=== PATIENT | female | born 1955 | race Caucasian/White ===

== ENCOUNTER → 2023-05-29 08:09 | Outpatient (BNVA) | payer MEDICARE, SELFPAY | PROVIDERS: PCP Family Medicine; Visit Provider Physician Assistant Surgical ==

== ENCOUNTER 2023-07-02 09:58 | Outpatient (AMB) | payer MEDICARE, SELFPAY ==
--- NOTE | 2023-07-02 10:00 | MHC.OFFVISWM ---
Intake VS Expanded 07/02/23 10:13 Height 5 ft 2 in Weight 225 lb BMI 41.1 BP 151/92 H Blood Pressure Location Rt brachial Blood Pressure Position Sitting Pulse 97 Pulse Source Pulse Oximeter Temp 96.9 F Temperature Source Tympanic Pulse Oximetry 94 Oxygen Delivery Method Room Air Body Fat 107.6 Body Fat Percentage 47.8 Free Fat Mass 117.2 Muscle Mass 111.4 Visceral Mass 17.0 Water Mass 82.8 BMR 1,651 Intake Visit Reasons: (ov) SWL BMI 40.9 Inspector Casing Required: No Allergies acetaminophen [From Vicodin] Allergy (Severe, Verified 07/02/23 10:06) Anaphylaxis hydrocodone [From Vicodin] Allergy (Severe, Verified 07/02/23 10:06) Anaphylaxis Medication List - Last Reconciled 07/02/23 by ABRIL Richards allopurinol 100 mg PO BID amlodipine 2.5 mg PO DAILY cyclosporine 0.05% (Restasis) drps ophthalmic (eye) BID diphenhydramine HCl (Benadryl Allergy) 25 mg PO BEDTIME PRN famotidine (Pepcid) 20 mg PO DAILY simvastatin 40 mg PO DAILY vitamin B complex (B Complex-Vitamin B12 tablet) 1 tab PO DAILY HPI HPI Comments History of Present Illness Details Pt is here to start the [facility] [place] [facility]. She heard about our program from her son who had surgery here. Her goal is to lose weight and achieve a healthy lifestyle as well as to improve, if not resolve, obesity related medical conditions, including htn, hld. She reports first being concerned about her weight lifelong, highest weight to date was 239. Current weight is 225 pounds with a BMI of 41.2. She has tried multiple methods of weight loss including weight watchers without permanent results. She lives with daughter and granddaughter. 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 She wakes at:?7 am, and goes to bed at?10 pm. Dinner is at 6 pm. Breakfast: scram eggs or yogurt w Kashi cereal AM snack: fruit Lunch: protein w salad PM snack: popcorn Dinner: chicken, quinoa, veg, potatoe, pasta After dinner: crackers, fairlife milk, fruit, pudding Other snacks: ice cream, cake Liquids: 64 oz water daily, rare diet coke, no juice Alcohol/marijuana/tobacco intake: no etoh, no cannabis, no tobacco Exercise: stationary bike at home 20 min 3 x per week, swimming at [facility], GERD score: 7 JAYLEEN score: 0 ESS score: 3 QOL score: 65 [facility] Medical History (Updated 07/02/23 @ 11:01 by ABRIL Richards) Hx of cataract Hx of retinal detachment Surgical History (Updated 07/02/23 @ 11:01 by ABRIL Richards) History of colon resection History of lateral meniscus repair of left knee History of repair of ACL Hx of hernia repair Hx of kidney donation Social History Alcohol intake: never Patient Tobacco Use Status: Former Tobacco user Years Smoked: quit 20 yrs ago Review of Systems Const All systems reviewed & are unremarkable except as noted in HPI and below Physical Exam Const General: cooperative, healthy appearing and no acute distress Orientation/consciousness: patient oriented x3 HEENT Head: Yes normal to inspection Ears: hearing grossly normal bilaterally General nose exam: Normal external nose present Face and sinus: Yes normal facial exam Eyes General: appearance normal, both eyes and all related structures Resp Effort & Inspection: normal respiratory effort Auscultation: clear to auscultation bilaterally Cardio Rate: regular rate Rhythm: regular rhythm Heart sounds: S1 normal heart sound present and S2 normal heart sound present GI Other: infraumbilical surgical dehiscence scar, right open nephrectomy scar, lat abdomen, Inspection: Yes normal to inspection, No distended and Yes obesity Palpation (GI): Soft to palpation, nontender and no guarding Auscultation: normal bowel sounds Skin General skin exam: no rashes or lesions noted Neuro General: patient oriented x3 Extrem General: No edema Psych Appearance: grossly normal Mental Status: mental status grossly normal Speech and movement: Normal speech and movement present Affect: normal affect Attitude: cooperative Assessment & Plan Assessment & Plan (1) Morbid obesity: Code(s): E66.01 - Morbid (severe) obesity due to excess calories Plan: This is a?67 yo female who will start our SWL program to prepare for bariatric surgery.? Blood work, h pylori , CXR, ECG, Abd US and UGI have been ordered. She is being scheduled for RD and BH initial consultations. She will start SWL classes and watch the first three videos before her next appointment. ? Adequate sleep of 7-8 hours per night discussed, awakening at 7 am and going to bed at 10 pm ? Purchase body composition analyzer scale (Isma lawler or Salma recommended) and check weight weekly. The best time to do this is first thing in the morning after going to the bathroom. 1. Nutritional counseling: Be sure to careful read the number of scoops per shake Start with 3 Premier Protein shakes ([employer], [employer], [facility]), First shake (1 scoop in 8 oz low fat unsweetened almond milk or water) at 8am-10am, Second shake (1/2 scoop in 8 oz unsweetened almond milk or water) at 12pm-2pm 1 protein bar (Fit crunch bars at [employer], [facility], or [employer]) at 3pm-5pm. Dinner at 6pm (8 forks of protein and 8 forks of salad/vegetables). Meal to include lean meat (beef, fish, pork, turkey, chicken), cooked vegetables or a salad with olive oil and/or fruits (berries, pears, apples, kiwi). Avoid salt, breads, potatoes, rice, pasta, desserts. Another shake with 1 scoop in 8 oz unsweetened almond milk at 8pm-10pm. Try to drink 64 oz of water daily and avoid soda and juices. ?2. Each shake would be drunk slowly, like coffee in a period of 2 hours. ?3. Cut each bar in 4 pieces and eat each piece in 30 min ?to make each bar last 2 hours. ?4. I emphasized the importance of measuring accurately the food portion and measure it carefully when serving the food on the plate ?5. The meal portions include 8 full-size forks of meat and 8 full-size forks of salad. You always eat the meat portion but you can replace up to half of the forks of salad/vegetables with rice, potatoes or pasta, or a fruit ?if you like. The less you do it the better weight loss will be. ?6. One full-size fork is what can be scooped on the fork without falling aside and not what can be bit with the fork. Use regular forks like those you find in a typical restaurant. ?7.? Please send me weight measurements as soon as possible and then once a week. Always include your diet and exercise plan. Alternatively come weekly at the office for weight checks and send me the measurements. ?8. Exercise counseling: Begin by watching a stretching for beginners video. Start slowly and begin to stretch your muscles. You should do this before and after each exercise session to prevent injury. Please return to [facility] gym near your home. Ask the entry level manager or one of the trainers how to use the machines if you are unfamiliar with them. Start elliptical with a resistance of 0. Increase resistance by 1 every 3 min to your most comfortable resistance with a max resistance of 6. Reduce the resistance by 1 every 3 minutes back down to 0 and repeat cycles for 300 calories. Alternatively, start treadmill with a speed of 2.2-2.5 and incline of 0, increasing incline by 1 every 3 minutes to the highest comfortable level (max 6 for now) then decrease in the same fashion. Repeat process to a goal of 300 calories. Goal of 2000 calories burned or more weekly. You may also consider use of the stationary bike. The easiest would be to chose the fat-burn or interval training program on the machine and do this until you reach the 300 calorie goal. Alternatively, you can manually adjust the resistance in a similar fashion as mentioned above, (resistance of 0-6 with a goal speed of 12 mph). Tracking calories is essential. 9. Alternatively start walking outside daily, tracking calories with a goal of 300 calories per day, daily. You can download the tevin [employer] which can track your time, distance and calories while walking outside. You press start in the tevin when you start and then stop when you are finished. 10.? It is important to text me weekly with your weight and if you are having any problems with the plans. 11. Please get labs, EKG and chest X-Ray within 1 week. 12. Discussed and answered all questions regarding?obtained consent to participate in the [place] [facility]?Registry. 13. Please follow the diet plan exactly, without any change. If you do not like something about the plan or you feel hungry, you need to communicate with me so I can help you revise the plan. You should not change the plan yourself. Text me at [phone] 14. Goal is to lose at least 12 pounds in the first month 15. Goal is to lose 10% of your weight before surgery, which is about 22 lbs. Ultimate weight goal: 203 lbs before surgery Patient is morbidly obese and is not considered stable at this time.?I spent a total of 70 minutes reviewing/updating records, examining the patient and counseling the patient on weight management as detailed above. Orders: Orders Vitamin B12 and Folate Today E66.01 - Morbid (severe) obesity due to excess calories, E78.00 - Pure hypercholesterolemia, unspecified, I10 - Essential (primary) hypertension Comprehensive Met. Panel Today E66.01 - Morbid (severe) obesity due to excess calories, E78.00 - Pure hypercholesterolemia, unspecified, I10 - Essential (primary) hypertension C Reactive Protein Today E66.01 - Morbid (severe) obesity due to excess calories, E78.00 - Pure hypercholesterolemia, unspecified, I10 - Essential (primary) hypertension Ferritin Today E66.01 - Morbid (severe) obesity due to excess calories, E78.00 - Pure hypercholesterolemia, unspecified, I10 - Essential (primary) hypertension Hemoglobin A1c Today E66.01 - Morbid (severe) obesity due to excess calories, E78.00 - Pure hypercholesterolemia, unspecified, I10 - Essential (primary) hypertension Insulin Today E66.01 - Morbid (severe) obesity due to excess calories, E78.00 - Pure hypercholesterolemia, unspecified, I10 - Essential (primary) hypertension IRON PROFILE Today E66.01 - Morbid (severe) obesity due to excess calories, E78.00 - Pure hypercholesterolemia, unspecified, I10 - Essential (primary) hypertension Lipid Panel Today E66.01 - Morbid (severe) obesity due to excess calories, E78.00 - Pure hypercholesterolemia, unspecified, I10 - Essential (primary) hypertension PTHI Today E66.01 - Morbid (severe) obesity due to excess calories, E78.00 - Pure hypercholesterolemia, unspecified, I10 - Essential (primary) hypertension TSH reflex Free T4 Today E66.01 - Morbid (severe) obesity due to excess calories, E78.00 - Pure hypercholesterolemia, unspecified, I10 - Essential (primary) hypertension Vitamin A Today E66.01 - Morbid (severe) obesity due to excess calories, E78.00 - Pure hypercholesterolemia, unspecified, I10 - Essential (primary) hypertension Vitamin B1 Today E66.01 - Morbid (severe) obesity due to excess calories, E78.00 - Pure hypercholesterolemia, unspecified, I10 - Essential (primary) hypertension Vitamin D 25-OH Total Today E66.01 - Morbid (severe) obesity due to excess calories, E78.00 - Pure hypercholesterolemia, unspecified, I10 - Essential (primary) hypertension Zinc Today E66.01 - Morbid (severe) obesity due to excess calories, E78.00 - Pure hypercholesterolemia, unspecified, I10 - Essential (primary) hypertension ECG 12 lead EKG Today E66.01 - Morbid (severe) obesity due to excess calories, E78.00 - Pure hypercholesterolemia, unspecified, I10 - Essential (primary) hypertension FL upper GI w air Today E66.01 - Morbid (severe) obesity due to excess calories, E78.00 - Pure hypercholesterolemia, unspecified, I10 - Essential (primary) hypertension Complete Blood Count Auto Diff Today E66.01 - Morbid (severe) obesity due to excess calories, E78.00 - Pure hypercholesterolemia, unspecified, I10 - Essential (primary) hypertension H Pylori Breath Test Today E66.01 - Morbid (severe) obesity due to excess calories, E78.00 - Pure hypercholesterolemia, unspecified, I10 - Essential (primary) hypertension US abdomen comp w elastography Today E66.01 - Morbid (severe) obesity due to excess calories, E78.00 - Pure hypercholesterolemia, unspecified, I10 - Essential (primary) hypertension XR chest 2V Today E66.01 - Morbid (severe) obesity due to excess calories, E78.00 - Pure hypercholesterolemia, unspecified, I10 - Essential (primary) hypertension Referrals Behavioral Health Referral E66.01 - Morbid (severe) obesity due to excess calories, E78.00 - Pure hypercholesterolemia, unspecified, I10 - Essential (primary) hypertension Nutrition/Dietitian Referral E66.01 - Morbid (severe) obesity due to excess calories, E78.00 - Pure hypercholesterolemia, unspecified, I10 - Essential (primary) hypertension Coding Level of Care Code New Pt Level 5 (73512) Diagnoses Morbid obesity E66.01 Time Spent (min) 70
[2023-07-02 10:13] VITALS: BP 151/92; PULSE 97; TEMP 36.1; O2SAT 94; BMI 41.1
== END 2023-07-02 11:12 | disposition home or self-care (01) ==
PROVIDERS: PCP Family Medicine; Visit Provider Physician Assistant Surgical
DX: E66.01 Morbid (severe) obesity due to excess calories (principal); Z68.41 Body mass index [BMI] 40.0-44.9, adult
CPT/HCPCS: 99205

== ENCOUNTER → 2023-07-02 09:58 | Outpatient (BNVA) | payer MEDICARE, SELFPAY | PROVIDERS: PCP Family Medicine; Visit Provider Physician Assistant Surgical ==

== ENCOUNTER 2023-07-04 08:02 | Outpatient (REF) | payer MEDICARE, SELFPAY ==
--- NOTE | ~2023-07-04 | XR_ITS ---
EXAMINATION: XR CHEST 2 VIEWS CLINICAL INFORMATION: Morbid obesity. COMPARISON: None. TECHNIQUE: Frontal and lateral views of the chest were obtained. FINDINGS: The heart, great vessels, pulmonary vasculature and mediastinum are normal. The lungs show no focal infiltrate, effusion or pneumothorax. There is no acute osseous abnormality. There is multi-level thoracic spondylosis. XR/XR chest 2V IMPRESSION: No active cardiopulmonary disease.
--- NOTE | 2023-07-04 08:08 | ECG_ITS ---
Test Reason : morbid obesity Blood Pressure : / mmHG Vent. Rate : 098 BPM Atrial Rate : 098 BPM P-R Int : 166 ms QRS Dur : 082 ms QT Int : 350 ms P-R-T Axes : 037 -34 043 degrees QTc Int : 446 ms Normal sinus rhythm Left axis deviation Possible Inferior infarct , age undetermined Cannot rule out Anterior infarct , age undetermined Abnormal ECG No previous ECGs available Referred By: Karlos Pedroza Electronically Signed By:CASSI ALLISON
[2023-07-04 08:40] LABS: MANUAL DIFF FLAG NO
[2023-07-04 09:39] LABS: Basophils Absolute Auto 0.1 X10*3/uL (0.0-0.2); Eosinophils Absolute Auto 0.1 X10*3/uL (0.0-0.4); Eosinophils Percent Auto 1.1 % (0-4); Hematocrit 45.5 % (37.0-47.0); Imm Gran Abs Auto 0.02 X10*3/uL (0.00-0.03); Imm Gran Pct Auto 0.3 % (0.0-0.4); Lymphocytes Absolute Auto 1.7 X10*3/uL (1.2-4.9); Lymphocytes Percent Auto 23.6 % (20-40); Mean Corpuscular HGB Conc 35.2 g/dl (31.0-35.0); Mean Corpuscular Hemoglobin 35.9 pg (27.0-33.0); Mean Platelet Volume 10.5 fL (9.4-12.3); Monocytes Absolute Auto 0.7 X10*3/uL (0.1-1.2); Neutrophils Absolute Auto 4.7 x10*3/uL (2.0-8.3); Platelet Count 284 X10*3/uL (160-400); Red Blood Count 4.46 X10*6/uL (4.20-5.50); Red Cell Distribution Width 13.4 % (11.0-16.0); White Blood Count 7.3 X10*3/uL (4.8-10.8)
[2023-07-04 09:46] LABS: Estimated Average Glucose 94 mg/dL; Hemoglobin A1c % 4.9 % (<6.0)
[2023-07-04 10:36] LABS: Alanine Aminotransferase 32 U/L (0-31); Albumin Level 4.4 g/dL (3.5-5.0); Alkaline Phosphatase 79 U/L (39-117); Anion Gap 14 (12-20); Aspartate Amino Transferase 30 U/L (5-31); Bilirubin Total 0.6 mg/dL (0.0-1.0); Blood Urea Nitrogen 26 mg/dL (9-16); Calcium 10.1 mg/dL (8.4-10.2); Carbon Dioxide 25 mmol/L (22-29); Chloride 105 mmol/L (96-108); Cholesterol 217 mg/dL (<200); Estimated Glomerular Filt Rate 48; Ferritin 234 ng/mL (10-250); Glucose Random 101 mg/dL (60-115); HDL Cholesterol 47 mg/dL (>40); Insulin 16 uU/mL (2-29); Iron 131 mcg/dL (30-160); LDL Cholesterol Calculated 132 mg/dL (<100); Percent Iron Saturation 44 % (15-50); Potassium 4.1 mmol/L (3.3-5.1); Sodium 140 mmol/L (135-145); TSH reflex Free T4 2.08 uIU/mL (0.32-4.0); Total Iron Binding Capacity 296 mcg/dL (228-428); Total Protein 7.6 g/dL (6.5-8.0); Triglycerides 193 mg/dL (<150); Unsaturated Iron Binding 165 ug/dL; Vitamin D 25-OH Total 48.5 ng/mL (>30)
[2023-07-04 10:52] LABS: Folate 15.6 ng/mL (> or = 4.0); Vitamin B12 1756 pg/mL (200-900)
[2023-07-06 12:39] LABS: Calcium (PTHI) 9.9 mg/dL (8.6-10.4); PTHI 35 pg/mL (16-77)
[2023-07-08 12:34] LABS: Zinc 75 mcg/dL (60-130)
[2023-07-09 16:23] LABS: Vitamin B1 17 nmol/L (8-30)
[2023-07-10 02:19] LABS: Vitamin A 91 mcg/dL (38-98)
== END 2023-07-04 08:03 | disposition home or self-care (01) ==
LOC: HO.LAB 08:02
PROVIDERS: Visit Provider Physician Assistant Surgical
DX: E66.01 Morbid (severe) obesity due to excess calories (principal); E78.00 Pure hypercholesterolemia, unspecified; I10 Essential (primary) hypertension
CPT/HCPCS: 36415; 71046; 80053; 80061; 82306; 82607; 82728; 82746; 83036; 83525; 83540; 83970; 84425; 84443; 84590; 84630; 85025; 86140; 93005

== ENCOUNTER 2023-07-18 10:12 | Outpatient (REF) | payer MEDICARE, SELFPAY ==
--- NOTE | ~2023-07-18 | US_ITS ---
EXAMINATION: US COMPLETE ABDOMEN WITH LIVER ELASTOGRAPHY CLINICAL INFORMATION: Obesity COMPARISON: None available. TECHNIQUE: Real-time imaging of the abdominal viscera. Noninvasive ultrasound liver fibrosis assessment is performed using Conrad ElastPQ point quantification shear wave elastography (2D-SWE) with a C5-2 MHz transducer. Multiple elastography samples are obtained. FINDINGS: PANCREAS: The head of the pancreas is normal. The remainder of the pancreas is obscured from visualization by the overlying bowel gas. ABDOMINAL AORTA: Not well visualized due to bowel gas INFERIOR VENA CAVA: Visualized portions are normal. LIVER: Liver echotexture is slightly increased. The liver is normal in size 1.6 x 1.1 x 1.2 cm cyst in the left lobe of the liver. No other focal lesion. No biliary duct dilatation. The right lobe measures 14 cm in length. The left lobe measures 9 cm in length. Portal flow is normal/hepatopedal Shear wave liver elastography median stiffness is 1.2 m/s (reference: normal median stiffness is 1.3 m/s or less). IQR/median stiffness to assess sampling precision is 0.07 (reference: good quality data set is IQR/median stiffness of 0.15 or less). GALLBLADDER: Normal. The gallbladder is physiologically distended without evidence of stones, sludge, polyps, wall thickening or pericholecystic fluid. COMMON BILE DUCT: Normal in caliber measuring 0.3 cm in diameter. RIGHT KIDNEY: Removed LEFT KIDNEY: Normal. No hydronephrosis. No renal calculi or focal parenchymal lesions. The kidney measures 11.7 cm in maximum dimension. SPLEEN: Normal. The spleen measures 10.6 cm in maximum dimension. FREE FLUID: None. US/US abdomen comp w elastography IMPRESSION: 1. Impression: Slightly echogenic liver. Small liver cyst. Limited visualization of the pancreas and aorta. 2. Liver elastography: Adequate sampling. Normal liver stiffness. REFERENCE: Society of Radiologists in Ultrasound Liver Stiffness Thresholds (2020): LIVER STIFFNESS THRESHOLDS: *Liver Stiffness equal or less than 1.3 m/s: High probability of being normal. *Liver Stiffness less than 1.7 m/s: In the absence of other known clinical signs, rules out compensated advanced chronic liver disease. *Liver Stiffness 1.7-2.1 m/s: Suggestive of compensated advanced chronic liver disease but need further test for confirmation. *Liver Stiffness over 2.1 m/s: Rules in compensated advanced chronic liver disease. *Liver Stiffness over 2.4 m/s: Suggestive of clinically significant portal hypertension. QUALITY OF DATA SET: *IQR/Median value equal or less than 0.15 implies a quality data set. *IQR/Median value over 0.15 implies a poor quality data set. SIGNIFICANT CHANGE FROM PRIOR EXAM: Significant change if liver stiffness measurement is 10% or greater from prior exam. OTHER CONSIDERATIONS: The stage of liver fibrosis may be overestimated in the setting of acute hepatitis, liver inflammation, elevated liver function tests, hepatic vascular congestion, obstructive cholestasis, non-fasting state, and infiltrative diseases such as amyloidosis and lymphoma. In some patients with NAFLD, the liver stiffness thresholds for compensated advanced chronic liver disease may be lower. In causes other than viral hepatitis and NAFLD, liver stiffness thresholds are not well established.
== END 2023-07-18 10:13 | disposition home or self-care (01) ==
LOC: HO.US 10:12
PROVIDERS: PCP Family Medicine; Visit Provider Physician Assistant Surgical
DX: E66.01 Morbid (severe) obesity due to excess calories (principal); E78.00 Pure hypercholesterolemia, unspecified; I10 Essential (primary) hypertension
CPT/HCPCS: 76705; 76981

== ENCOUNTER 2023-07-22 08:44 | Outpatient (REF) | payer MEDICARE, SELFPAY ==
[2023-07-24 14:36] LABS: H Pylori Breath Test Negative (Negative)
== END 2023-07-22 08:45 | disposition home or self-care (01) ==
LOC: HO.LNP 08:44
PROVIDERS: PCP Family Medicine; Visit Provider Physician Assistant Surgical
DX: Z11.2 Encounter for screening for other bacterial diseases (principal); E66.01 Morbid (severe) obesity due to excess calories; E78.00 Pure hypercholesterolemia, unspecified; I10 Essential (primary) hypertension
CPT/HCPCS: 83013; 97802; 99211

== ENCOUNTER 2023-07-30 08:24 | Outpatient (AMB) | payer MEDICARE, SELFPAY ==
--- NOTE | 2023-07-30 08:25 | A.OFFVIS_ITS ---
Intake VS Expanded 07/30/23 08:34 BP 147/87 H Blood Pressure Location Rt brachial Blood Pressure Position Sitting Pulse 100 Pulse Source Pulse Oximeter Temp 96.3 F L Temperature Source Tympanic Pulse Oximetry 97 Oxygen Delivery Method Room Air Height 5 ft 2 in Weight 215 lb 9.6 oz BMI 39.4 Body Fat % 46.5 Body Fat Mass 100.0 Fat Free Mass 115.4 Visceral Fat Rating 16.0 Body Water % 37.8 Body Water Mass 81.4 Muscle Mass/Score 109.6 Basal Metabolic Rate/Score 1,614 Intake Visit Reasons: (OV) F/U SWL Cloth Desizing Range Tender Required: No Allergies acetaminophen [From Vicodin] Allergy (Severe, Verified 07/30/23 08:30) Anaphylaxis hydrocodone [From Vicodin] Allergy (Severe, Verified 07/30/23 08:30) Anaphylaxis Medication List - Last Reconciled 07/30/23 by ABRIL Richards allopurinol 100 mg PO BID amlodipine 2.5 mg PO DAILY cyclosporine 0.05% (Restasis) drps ophthalmic (eye) BID diphenhydramine HCl (Benadryl Allergy) 25 mg PO BEDTIME PRN famotidine (Pepcid) 20 mg PO DAILY simvastatin 40 mg PO DAILY HPI HPI Comments History of Present Illness Details The patient is a pleasant 67 year old female who returns to the clinic for pre-operative surgical weight loss management. They were last seen in the office on 07/02/23, recorded weight at that time was 225 pounds, with a BMI of 41.1. Today's weight is 215.6 pounds and BMI is 39.4. There has been a weight loss of 9.4 pounds since initiating the surgical weight loss program on 07/02/23 with a total body weight loss of 4.1 %. Pre op work up completed as follows: SWL classes:? 06/03 BH appts: 08/06/23 ? ? RD appts: cleared-07/22/23 Labs: 07/04/23 H. pylori: 07/22/23-neg CXR: 07/04/23-nad EK07/04/23-poss inf infarct, cannot r/o anterior infarct - 07/07/23-nuc stress test ordered, scheduled 08/07/23 ABD U/S: 07/18/23-fatty liver, small cyst left lobe UGI: 09/11/23 The patient reports she is feeling well. . Current meal plan includes: 2 Premier Protein shakes ([employer], [employer], [facility]), First shake (1.5 scoop in 8 oz low fat unsweetened almond milk or water) at 8am- 10am, Second shake (1 scoop in 8 oz unsweetened almond milk or water) at 12pm-2pm 1 protein bar (Fit crunch bars at [employer] , [facility], or [employer]) at 3pm-5pm. Dinner at 6pm (8 forks of protein and 8 forks of salad/vegetables). Drinking 60 oz of water Current exercise plan includes: stationary bike, 300 calories 5 x per week, water aerobics, 2 x/w, walking outside [facility] Medical History Hx of cataract Hx of retinal detachment Surgical History Hx of hernia repair History of repair of ACL History of lateral meniscus repair of left knee History of colon resection Hx of kidney donation Social History Alcohol intake: never Patient Tobacco Use Status: Former Tobacco user Years Smoked: quit 20 yrs ago Physical Exam Const General: healthy appearing and no acute distress Resp Effort & Inspection: normal respiratory effort Auscultation: clear to auscultation bilaterally Cardio Rate: regular rate Rhythm: regular rhythm GI Auscultation: normal bowel sounds Extrem General: Yes normal to inspection Assessment & Plan Assessment & Plan (1) Obesity (BMI 30-39.9): Code(s): E66.9 - Obesity, unspecified Plan: Making good progress 2 Premier Protein shakes ([employer], [employer], [facility]), First shake (1 scoop in 8 oz low fat unsweetened almond milk or water) at 8am- 10am, Second shake (1 scoop in 8 oz unsweetened almond milk or water) at 12pm-2pm 1 protein bar (Fit crunch bars at [employer], [facility], or [employer]) at 3pm-5pm. Dinner at 6pm (8 forks of protein and 8 forks of salad/vegetables). Increase exercise slightly reminded of upcoming appts rtc 3 weeks Coding Level of Care Code Est Pt Level 3 (76743) Diagnoses Obesity (BMI 30-39.9) E66.9
[2023-07-30 08:34] VITALS: BP 147/87; PULSE 100; TEMP 35.7; O2SAT 97; BMI 39.4
== END 2023-07-30 08:58 | disposition home or self-care (01) ==
PROVIDERS: PCP Family Medicine; Visit Provider Physician Assistant Surgical
DX: E66.9 Obesity, unspecified (principal); Z68.39 Body mass index [BMI] 39.0-39.9, adult
CPT/HCPCS: 99213

== ENCOUNTER → 2023-07-30 08:24 | Outpatient (BNVA) | payer MEDICARE, SELFPAY | PROVIDERS: PCP Family Medicine; Visit Provider Physician Assistant Surgical | DX: E66.9 Obesity, unspecified (principal); Z68.39 Body mass index [BMI] 39.0-39.9, adult | CPT/HCPCS: 99212 ==

== ENCOUNTER 2023-08-06 12:32 | Outpatient (AMB) | payer MEDICARE, SELFPAY ==
--- NOTE | 2023-08-06 12:42 | MHC.WMTHER ---
Intake Intake Visit Reasons: (OV) BH Intake Allergies acetaminophen [From Vicodin] Allergy (Severe, Verified 07/30/23 08:30) Anaphylaxis hydrocodone [From Vicodin] Allergy (Severe, Verified 07/30/23 08:30) Anaphylaxis PFSH Medical History Hx of cataract Hx of retinal detachment Surgical History Hx of hernia repair History of repair of ACL History of lateral meniscus repair of left knee History of colon resection Hx of kidney donation Social History Alcohol intake: never Patient Tobacco Use Status: Former Tobacco user Years Smoked: quit 20 yrs ago Behavioral Health Assessment Weight Management Therapy Therapy Notes Details Pt is looking to have weight loss surgery to help improve her health and quality of life. She reported that she wants to keep up with her grandchildren and also honor her brother who . Pt denied any mental health history at all. Presenting Concerns Referral Source provider Reason for referral weight loss surgery evaluation Precipitating Event obesity Living Situation Current Living Situation Own At risk of losing current housing? No Satisfied with current living situation? Yes Comments Pt is living with her daughter and granddaughter. Food/Weight/Diet Expectations of change weight loss History/Relationship with food Pt stated that she likes to eat, struggles with stopping and recognizing when she is full. She would eat her meals and graze as well. History/Relationship with weight Last 20 years or so History/Relationship with dieting WW many times and lost 50lbs a few times. Binge Eating Do you frequently eat large amounts of food in short periods of time, not feeling physically hungry? No Do you feel out of control when you eat a large amount of food in a short period of time? No Do you eat large amounts of food rapidly and typically alone? Yes Night Eating Do you wake up at least once during the night to eat? No If you wake up in the night, do you find that it is necessary to eat something in order to fall back asleep? No Do you have little or no appetite in the morning and feel very hungry in the evening, often overeating between dinner and when you go to bed? No Social History Family history and relationship Pt is , has three adult children and grandchildren. She reported that she at age 17 to her who 13 years ago from lung cancer. Her brother last December and he had diabetes since age 8. 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 Cultural/Ethnic information Legal Involvement and History Current or historical involvement with the legal system? none reported Education Preferred learning style Auditory, Verbal, Written, Learn by doing and Visual Currently enrolled in educational program? No Interested in further educational program? 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 None Service Service? No Mental Health and Addiction Treatment Current/Past substance abuse? Yes Comments Patient stated that she used to drink too much everyday whether iit was wine or something else. She stopped drinking completely 25 years ago when her son developed an addiction problem. Current/Past addictive behavior concerns? No Medical and Physical Health Summary Physical exam in the last year? Yes Pain Screening Current pain? Yes Pain in the last few months? No Medications Is the patient compliant with medications? Yes Does the patient have Stewart Guardian in place? Not applicable Does the patient use complimentary health approaches? No Trauma/Abuse History History of trauma? Yes Other Past (multiple losses ) Questionnaires PHQ-9 Over the last 2 weeks, how often have you been bothered by any of the following problems? 1. Little interest or pleasure in doing things: not at all 2. Feeling down, depressed, or hopeless: not at all 3. Trouble falling or staying asleep, or sleeping too much: not at all 4. Feeling tired or having little energy: not at all 5. Poor appetite or overeating: several days 6. Feeling bad about yourself - or that you are a failure or have let yourself or your family down: not at all 7. Trouble concentrating on things, such as reading the newspaper or watching television: not at all 8. Moving or speaking so slowly that other people could have noticed. Or the opposite - being so fidgety or restless that you have been moving around a lot more than usual: not at all 9. Thoughts that you would be better off or of hurting yourself in some way: not at all Total score: 1 Source: Developed by Drs. Mark Multani, Evelyn Corona, Rodrigo Hernandez and colleagues, with an educational ino from [employer]. Binge Eating Scale Group 1 A. I don't feel self-conscious about my wt. or body size when I'm with others. B. I feel concerned about how I look to others, but it normally does not make me fell disappointed with myself C. I do get self-conscious about my appearance and wt. which makes me feel disappointed in myself. D. I feel very self-conscious about my wt. and frequently I feel intense shame and disgust for myself. I try to avoid social contacts because of my self-consciousness. Response Group 1: B Group 2 A. I don't have any difficulty eating slowly in the proper manner. B. Although I seem to gobble down foods, I don't end up feeling stuffed because of eating to much. C. At times, I tend to eat quickly and then, I feel uncomfortably full afterwards. D. I have the habit of bolting down my food, without really chewing it. When this happens I usually feel uncomfortably stuffed because I've eaten to much. Response Group 2: A Group 3 A. I feel capable to control my eating urges when I want to. B. I feel like I have failed to control my eating more than the average person. C. I feel utterly helpless when it comes to feeling in control of my eating urges. D. Because I feel so helpless about controlling my eating I have become very desperate about trying to get control. Response Group 3: B Group 4 A. I don't have the habit of eating when I'm bored. B. I sometimes eat when I'm bored, but often I'm able to get busy and get my mind off food. C. I have a regular habit of eating when I'm bored, but occasionally, I can use some other activity to get my mind off eating. D. I have a strong habit of eating when I'm bored. Nothing seems to help me breath the habit. Response Group 4: B Group 5 A. I'm usually physically hungry when I eat something. B. Occasionally, I eat something on impulse even though I really am not hungry. C. I have the regular habit of eating foods, that I might not really enjoy, to satisfy a hungry feeling even though physically, I don't need the food. D. Although I'm not physically hungry, I get a hungry feeling in my mouth that only seems to be satisfied when I eat a food, like sandwich, that fills my mouth. Sometimes, when I eat the food to satisfy my mouth hunger, I then spit the food out so I won't gain weight. Response Group 5: B Group 6 A. I don't feel any guilt or self-hate after I overeat. B. After I overeat, occasionally I feel guilt or self-hate. C. Almost all the time I experience strong guilt or self-hate after I overeat. Response Group 6: B Group 7 A. I don't lose total control of my eating when dieting even after periods when I overeat. B. Sometimes when I eat a forbidden food on a diet, I feel like I blew it and eat even more. C. Frequently, I have the habit of saying to myself, I've blown it now, why not go all the way, when I overeat on a diet. When that happens I eat more. D. I have a regular habit of starting a strict diets for myself but I break the diets by going on an eating binge. My life seems to be either a feast or famine. Response Group 7: B Group 8 A. I rarely eat so much food that I feel uncomfortably stuffed afterwards. B. Usually about once a month, I each such a quantity of food, I end up feeling very stuffed. C. I have regular periods during the month when I eat large amounts of food, either at mealtime or at snacks. D. I eat so much food that I regularly feel quite uncomfortable after eating and sometimes a bit nauseous. Response Group 8: A Group 9 A. My level of calorie intake does not go up very high or go down very low on a regular basis. B. Sometimes after I overeat, I will try to reduce my caloric intake to almost nothing to compensate for the excess calories I've eaten. C. I have a regular habit of overeating during the night. It seems that my routine is not to be hungry in the morning but overeat in the evening. D. In my adult years, I have had week-long periods where I practically starve myself. This follows periods when I overeat. It seems I live a life of either feast or famine. Response Group 9: B Group 10 A. I usually am able to stop eating when I want to. I know when enough is enough. B. Every so often, I experience a compulsion to eat which I can't seem to control. C. Frequently, I experience strong urges to eat which I seem unable to control, but at other times I can control my eating urges. D. I feel incapable of controlling urges to eat. I have a fear of not being able to stop eating voluntarily. Response Group 10: A Group 11 A. I don't have any problem stopping eating when I feel full. B. I usually can stop eating when I feel full but occasionally overeat leaving me feeling uncomfortably stuffed. C. I have a problem stopping eating once I start and usually I feel uncomfortably stuffed after I eat a meal. D. Because I have a problem not being able to stop eating when I want, I sometimes have to induce vomiting to relieve my stuffed feeling. Response Group 11: B Group 12 A. I seem to eat just as much when I'm with others, Family social gatherings as when I'm by myself. B. Sometimes, when I'm with other persons, I don't eat as much as I want to eat because I'm self-conscious about my eating. C. Frequently, I eat only a small amount of food when others are present, because I'm very embarrassed about my eating. D. I feel so ashamed about overeating that I pick times to overeat when I know no one will see me. I feel like a closet eater. Response Group 12: B Group 13 A. I eat three meals a day with only an occasional between meal snack. B. I eat 3 meals a day, but I also normally snack between meals. C. When I am snacking heavily, I get in the habit of skipping regular meals. D. There are regular periods when I seem to be continually eating, with no planned meals. Response Group 13: B Group 14 A. I don't think much about trying to control unwanted eating urges. B. At least some of the time, I feel my thoughts are pre-occupied with trying to control my eating urges. C. I feel that frequently I spend much time thinking about how much I ate or about trying not to eat anymore. D. It seems to me that most of my waking hours are pre-occupied by thoughts about eating or not eating. I feel like I'm constantly struggling not to eat. Response Group 14: B Group 15 A. I don't think about food a great deal. B. I have strong craving for food but they last only for brief periods of time. C. I have days when I can't seem to think about anything else but food. D. Most of my days seem to be pre-occupied with thoughts about food. I feel like I live to eat. Response Group 15: B Group 16 A. I usually know whether or not I'm physically hungry. I take the right portion of food to satisfy me. B. Occasionally, I feel uncertain about knowing whether or not I'm physically hungry. A these times it's hard to know how much food I should take to satisfy me. C. Even though I might know how many calories I should eat, I don't have any idea what is a normal amount of food for me. Response Group 16: A Binge Eating Score: 12 Score less than 17 Minimal Risk Score between 18-26 Moderate Risk Score between 27-46 High Risk Assessment & Plan Assessment & Plan (1) Adjustment disorder, unspecified: Code(s): F43.20 - Adjustment disorder, unspecified (2) Morbid obesity: Code(s): E66.01 - Morbid (severe) obesity due to excess calories Plan Patient has no mental health treatment history or serious difficulties with emotional health. 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 Coding Level of Care Code Marques Garcia ([id number]) Diagnoses Adjustment disorder, unspecified F43.20 Morbid obesity E66.01 Time Spent (min) 55
== END 2023-08-06 14:03 | disposition home or self-care (01) ==
PROVIDERS: PCP Family Medicine; Visit Provider Counselor Mental Health
DX: F43.20 Adjustment disorder, unspecified (principal); E66.09 Other obesity due to excess calories; Z68.39 Body mass index [BMI] 39.0-39.9, adult
CPT/HCPCS: 90791

== ENCOUNTER → 2023-08-06 12:32 | Outpatient (BNVA) | payer MEDICARE, SELFPAY | PROVIDERS: PCP Family Medicine; Visit Provider Counselor Mental Health ==

== ENCOUNTER → 2023-08-07 08:01 | Outpatient (REF) | payer MEDICARE, SELFPAY ==
--- NOTE | ~2023-08-07 | NM_ITS ---
Lexiscan Myocardial perfusion study Indication: Abnormal EKG, preoperative evaluation Technique: The patient was brought in for a Lexiscan perfusion study on 08/07/2023 and was injected 0.4 mg of Lexiscan intravenously. Within a minute of this injection 35 mCi of sestamibi was given intravenously. Images were obtained using the SPECT gamma camera interlaced with the gating device. Images were obtained in supine position. Resting perfusion study was performed on 08/08/2023. Patient was administered 35 mCi of sestamibi intravenously at rest. Images were then obtained in supine position. Images were processed with the software and compared side to side in short axis, horizontal long axis and vertical long axis views. Total DLP 178mGy-cm. Findings: Raw acquisition reviewed. The stress perfusion study showed mildly diminished tracer uptake in the basal to mid part of inferior wall. With CT at admission correction, there is significant improvement suggestive of diaphragmatic attenuation artifact. The gated study shows diminished LV systolic function with calculated LVEF of 45%, but visually appears normal. LV cavity is normal in size. The gated study shows normal wall thickening and contraction of segments. Resting study shows diminished tracer uptake in the inferior wall. There is improvement with CT attenuation correction suggestive of diaphragmatic attenuation artifact. Gating at rest reveals normal wall motion with ejection fraction at 32%; however, visually LVEF appears normal. The findings are consistent with fixed inferior defect from diaphragmatic attenuation artifact. No clear reversible defects. NM/NM cardiolite stress test Impression: 1. Myocardial perfusion imaging study shows likely normal myocardial perfusion. 2. Gated LVEF is 44% during stress and 32% during; however, visually appears to be normal. Correlate with echocardiogram. 3. Transient ischemic dilatation not present. EKG component of the test reported separately.
--- NOTE | 2023-08-07 08:03 | CA_ITS ---
Acquisition Time: 2023-08-07 08:04:22 Total Exercise Time: 00:02:00 Test Indications: Abnormal ECG Medications: ALLOPURINOL AMLODIPINE FAMOTIDINE SIMVASTATIN Protocol: LEXISCAN Max HR: 112 BPM 73% of Pred: 152 BPM Max BP: 106/076 mmHG Max Work Load: 1.0 METS Pharmacolgical stress test with Lexiscan injection while sitting and kicking in chair,without angnal symptoms, without arrhythmias, with normotensive response to injection, with nondiagnositic EKGs. Nuclear images pending. Test reviewed with Dr. Banegas. Referred By: Karlos Pedroza Overread By: Lee Ann Campuzano
== END ==
LOC: HO.CARD 08:01
PROVIDERS: PCP Family Medicine; Visit Provider Physician Assistant Surgical
DX: E66.01 Morbid (severe) obesity due to excess calories (principal); R94.31 Abnormal electrocardiogram [ECG] [EKG]
CPT/HCPCS: 78452; 93017; A9500; J0280; J2785

== ENCOUNTER → 2023-08-07 08:03 | Outpatient (BNV) | payer MEDICARE, SELFPAY | PROVIDERS: PCP Family Medicine; Visit Provider Nurse Practitioner | DX: R94.31 Abnormal electrocardiogram [ECG] [EKG] (principal) | CPT/HCPCS: 78452; 93016; 93018 ==

== ENCOUNTER 2023-08-28 09:44 | Outpatient (AMB) | payer MEDICARE, SELFPAY ==
--- NOTE | 2023-08-28 09:08 | A.OFFVIS_ITS ---
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 Allergies acetaminophen [From Vicodin] Allergy (Severe, Verified 07/30/23 08:30) Anaphylaxis hydrocodone [From Vicodin] Allergy (Severe, Verified 07/30/23 08:30) Anaphylaxis Medication List - Last Reconciled 08/28/23 by ABRIL Richards allopurinol 100 mg PO BID amlodipine 2.5 mg PO DAILY cyclosporine 0.05% (Restasis) drps ophthalmic (eye) BID diphenhydramine HCl (Benadryl Allergy) 25 mg PO BEDTIME PRN famotidine (Pepcid) 20 mg PO DAILY simvastatin 40 mg PO DAILY HPI HPI Comments History of Present Illness Details The patient is a pleasant 68 year old female who returns to the clinic for pre-operative surgical weight loss management. They were last seen in the office on 07/30/23, recorded weight at that time was 215.6 pounds, with a BMI of 39.4. Today's weight is 210.8 pounds and BMI is 38.6. There has been a weight loss of 14.2 pounds since initiating the surgical weight loss program on 07/02/23 with a total body weight loss of 6.3 %. Pre op work up completed as follows: SWL classes:? 06/03 BH appts: cleared-08/06/23 ? ? RD appts: cleared-07/22/23 Labs: 07/04/23-ok H. pylori: 07/22/23-neg CXR: 07/04/23-nad EK07/04/23-poss inf infarct, cannot r/o anterior infarct - 07/07/23-nuc stress test ordered, scheduled 08/07/23- Myocardial perfusion imaging study shows likely normal myocardial perfusion. Gated LVEF 44% during stress and 32% at rest however visually appears to be normal. Correlate with echocardiogram. Transient ischemic dilatation not present. ABD U/S: 07/18/23-fatty liver, small cyst left lobe UGI: 09/11/23 The patient reports she is feeling well. She did have a birthday celebration and ate a bigger meal at night. The patient does have a body composition scale. They also have been communicating weekly. She does not have a clinical data manager. She does not endorse any SOB or CP with increased activity such as stationary bike or water aerobics Current meal plan includes: 2 Premier Protein shakes ([employer], [employer], [employer]), First shake (1 scoop in 8 oz low fat unsweetened almond milk or water) at 8am- 10am, Second shake (1 scoop in 8 oz unsweetened almond milk or water) at 12pm-2pm 1 protein bar (Fit crunch bars at [employer] , [employer], or [employer]) at 3pm-5pm. Dinner at 6pm (8 forks of protein and 8 forks of salad/vegetables). Drinking 64 oz of water Current exercise plan includes: stationary bike, 290-300 calories 4 x per week, water aerobics, 2 x/w, walking outside [employer] home videos PFSH Medical History Hx of cataract Hx of retinal detachment Surgical History Hx of hernia repair History of repair of ACL History of lateral meniscus repair of left knee History of colon resection Hx of kidney donation Social History Alcohol intake: never Patient Tobacco Use Status: Former Tobacco user Years Smoked: quit 20 yrs ago Assessment & Plan Assessment & Plan (1) Abnormal EKG: Code(s): R94.31 - Abnormal electrocardiogram [ECG] [EKG] Plan: obtained mto scan and this was somewhat abnl in that the recc was to correlate with ECHO. 68 yo female w cardiac risk factors of obesity and HTN, will refer to cardiology for further recommendations about cardiac risk stratification and wheather ECHO is indicated. (2) Obesity (BMI 30-39.9): Code(s): E66.9 - Obesity, unspecified Plan: Recc increase exercise to 5-6 days per week and continue to maintain adherence to meal plan. Will have her f/u w me in 3 weeks and then transfer to Dr Talavera Orders: Referrals Cardiology Referral E66.9 - Obesity, unspecified, R94.31 - Abnormal electrocardiogram [ECG] [EKG] Telehealth Telehealth Location of provider rendering services: practice address Location of patient: address on file Patient Identification confirmed using: Name, : Yes Telehealth method: voice only Patient verbally consented to treatment: Yes Patient verbally consented to billing insurance company: Yes Patient informed of any privacy concerns related to visit: Yes Minutes spent on Phone/Video with Pt.: 20 Coding Level of Care Code Tele Est Pt Level 3 (82348) Diagnoses Abnormal EKG R94.31 Obesity (BMI 30-39.9) E66.9 Time Spent (min) 25
[2023-08-28 09:09] VITALS: BMI 38.6
== END 2023-08-28 10:26 | disposition home or self-care (01) ==
LOC: HO.HBS 09:44
PROVIDERS: PCP Family Medicine; Visit Provider Physician Assistant Surgical
DX: E66.9 Obesity, unspecified (principal); Z68.38 Body mass index [BMI] 38.0-38.9, adult; R94.31 Abnormal electrocardiogram [ECG] [EKG]
CPT/HCPCS: 99443

== ENCOUNTER → 2023-08-28 09:44 | Outpatient (BNVA) | payer MEDICARE, SELFPAY | PROVIDERS: PCP Family Medicine; Visit Provider Physician Assistant Surgical ==

== ENCOUNTER 2023-09-05 08:15 | Outpatient (AMB) | payer MEDICARE, SELFPAY ==
--- NOTE | 2023-09-05 08:29 | A.OFFVIS_ITS ---
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/ Marisol PCP abn ekg -bariatric Intake Note: NPV Call Worker Required: No Accompanied by: Self / Same As Patient Allergies acetaminophen [From Vicodin] Allergy (Severe, Verified 07/30/23 08:30) Anaphylaxis hydrocodone [From Vicodin] Allergy (Severe, Verified 07/30/23 08:30) Anaphylaxis Medication List - Last Reconciled 09/05/23 by Maurilio Acosta MD allopurinol 100 mg PO BID amlodipine 2.5 mg PO DAILY cyclosporine 0.05% (Restasis) drps ophthalmic (eye) BID diphenhydramine HCl (Benadryl Allergy) 25 mg PO BEDTIME PRN famotidine (Pepcid) 20 mg PO DAILY simvastatin 40 mg PO DAILY HPI HPI Comments History of Present Illness Details Vanessa is here for consultation regarding preoperative stratification for bariatric surgery. This concern for an abnormal EKG. However, patient states she never had cardiac issues including coronary disease or myocardial infarction or cardiomyopathy or in fact anything cardiac sounding. She has hypertension dyslipidemia. Within limits of her activity, she does not have any anginal-type symptoms or shortness of breath. However, does not do much because of knee pain. [facility] Medical History Hx of cataract Hx of retinal detachment Surgical History Hx of hernia repair History of repair of ACL History of lateral meniscus repair of left knee History of colon resection Hx of kidney donation Family History (Updated 09/05/23 @ 08:37 by Jaz Adhikari) Father Heart murmur Heart valve replaced by transplant Brother Heart valve replaced by transplant H/O heart bypass surgery Social History Alcohol intake: never Patient Tobacco Use Status: Former Tobacco user Years Smoked: quit 20 yrs ago Review of Systems Const Denies chills, Denies daytime sleepiness, Denies fatigue, Denies fever(s), Denies frequent falls, Denies night sweats, Denies snoring, Denies weakness, Denies weight gain and Denies weight loss Eyes Denies loss of vision ENT Denies dizziness and Denies hearing loss Card Denies chest pain, Denies chest pain with activity, Denies syncope, Denies rapid heart rate, Denies edema, Denies claudication, Denies leg edema, Denies lightheadedness, Denies palpitations, Denies dyspnea, Denies dyspnea on exertion and Denies orthopnea Resp Denies cough, Denies excessive phlegm production, Denies dyspnea, Denies dyspnea on exertion, Denies snoring and Denies wheezing GI Denies abdominal pain, Denies hematochezia, Denies change in bowel habits, Denies change in stool character, Denies heartburn, Denies nausea and Denies vomiting Denies hematuria, Denies urinary frequency and Denies dysuria Musc Denies arthralgias, Denies muscle weakness, Denies numbness and Denies tingling Skin/Breast Denies nail changes and Denies rash Neuro Denies Abnormal speech present, Denies dizziness, Denies syncope, Denies frequent falls, Denies loss of vision, Denies memory loss, Denies numbness, Denies tingling and Denies weakness Psych Denies depression and Denies memory loss Endo Denies fatigue and Denies palpitations Aller/Immun Denies wheezing Physical Exam Vital Signs: Last Vital Signs Pulse 99 09/05/23 08:35 BP 130/82 09/05/23 08:35 BMI result Body Mass Index 38.5 Const General: comfortable and no acute distress Orientation/consciousness: patient oriented x3 HEENT Other: Unremarkable Head: Yes normal to inspection Neck Neck: Yes normal visual inspection Chest Chest palpation & inspection: normal inspection of the chest Resp Auscultation: clear to auscultation bilaterally Cardio Palpation: normal PMI Heart sounds: S1 normal heart sound present, S2 normal heart sound present, no gallops, no murmurs and no rubs GI Palpation (GI): Soft to palpation Back/Spine/Pelvis Other: unremarkable Skin General skin exam: no rashes or lesions noted Neuro General: patient oriented x3 Speech: No Abnormal speech present Extrem General: Yes normal to inspection Psych Mental Status: mental status grossly normal Assessment & Plan Assessment & Plan (1) Preoperative cardiovascular examination: Code(s): Z01.810 - Encounter for preprocedural cardiovascular examination (2) Abnormal EKG: Code(s): R94.31 - Abnormal electrocardiogram [ECG] [EKG] (3) Abnormal myocardial perfusion study: Code(s): R94.39 - Abnormal result of other cardiovascular function study (4) Obesity (BMI 30-39.9): Code(s): E66.9 - Obesity, unspecified (5) HTN (hypertension): Code(s): I10 - Essential (primary) hypertension Plan In the recent EKG, underlying rhythm is sinus at 98/Min; leftward axis; cannot exclude old anterior infarct; nonspecific ST-T changes; normal UT and corrected QT. Myocardial perfusion imaging study reported to have likely normal perfusion. Calculated LVEF was in the lower side but visually thought to be normal. We will clarify the LV function with an echocardiogram. As long as this is unremarkable, she would be able to proceed with bariatric surgery. Can make an addendum after review. Orders: Orders CA echo transthoracic complete Today I25.10 - Atherosclerotic heart disease of [place] coronary artery without angina pectoris, Z01.810 - Encounter for preprocedural cardiovascular examination Coding Level of Care Code New Pt Level 4 (76154) Diagnoses Preoperative cardiovascular examination Z01.810 Abnormal EKG R94.31 Abnormal myocardial perfusion study R94.39 Obesity (BMI 30-39.9) E66.9 HTN (hypertension) I10
[2023-09-05 08:35] VITALS: BP 130/82; PULSE 99; BMI 38.5
== END 2023-09-05 09:08 | disposition home or self-care (01) ==
PROVIDERS: PCP Family Medicine; Visit Provider Internal Medicine
DX: Z01.810 Encounter for preprocedural cardiovascular examination (principal); R94.31 Abnormal electrocardiogram [ECG] [EKG]; R94.39 Abnormal result of other cardiovascular function study; E66.9 Obesity, unspecified; I10 Essential (primary) hypertension
CPT/HCPCS: 99204

== ENCOUNTER → 2023-09-05 08:15 | Outpatient (BNVA) | payer MEDICARE, SELFPAY | PROVIDERS: PCP Family Medicine; Visit Provider Internal Medicine | DX: Z01.810 Encounter for preprocedural cardiovascular examination (principal); R94.31 Abnormal electrocardiogram [ECG] [EKG]; R94.39 Abnormal result of other cardiovascular function study; E66.9 Obesity, unspecified; I10 Essential (primary) hypertension; Z68.38 Body mass index [BMI] 38.0-38.9, adult | CPT/HCPCS: 99202 ==

== ENCOUNTER 2023-09-11 09:19 | Outpatient (REF) | payer MEDICARE, SELFPAY ==
--- NOTE | ~2023-09-11 | FL_ITS ---
EXAMINATION: XR FLUOROSCOPY UPPER GI WITH AIR CLINICAL INFORMATION: Preop evaluation prior to bariatric surgery COMPARISON: None TECHNIQUE: Fluoroscopic air contrast upper GI examination was performed utilizing standard techniques with thin and thick barium and effervescent granules. Numerous spot images were obtained. FINDINGS: Dual and single contrast images of the esophagus demonstrate normal caliber, contour, and mucosal pattern. No evidence of stricture, mass, or ulcerations identified. Nonpropulsive tertiary contractions are noted throughout the esophagus, consistent with esophageal dysmotility. A small type I hiatal hernia is present. No significant gastroesophageal reflux was seen during the course of the examination and on reflux views. Dual contrast and single contrast images of the stomach demonstrated normal contour and mucosal pattern without evidence of mass, ulceration, or other abnormality. Contrast freely passed into the gastric antrum and duodenal bulb without delay. Single and air-contrast images of the duodenal bulb demonstrate no abnormality. The duodenal sweep has a normal appearance, course, and mucosal fold appearance. The imaged proximal jejunum has a normal fold pattern and caliber. FLUOROSCOPY TIME: 3 minutes 12 seconds Number of Spot Images: 11 Number of Cine: 10 DOSE AREA PRODUCT: 3067 uGy-m2 (microgray-meter squared) FL/FL upper GI w air IMPRESSION: 1. Presbyesophagus 2. Small type I hiatal hernia This procedure was performed by Carlitos Smith PA-C, and supervised by Dr. Campuzano
== END 2023-09-11 09:20 | disposition home or self-care (01) ==
LOC: HO.XRAY 09:19
PROVIDERS: PCP Family Medicine; Visit Provider Physician Assistant Surgical
DX: E66.01 Morbid (severe) obesity due to excess calories (principal); E78.00 Pure hypercholesterolemia, unspecified; I10 Essential (primary) hypertension
CPT/HCPCS: 74246

== ENCOUNTER → 2023-09-11 09:20 | Outpatient (BNV) | payer MEDICARE, SELFPAY | PROVIDERS: PCP Family Medicine; Visit Provider Radiology Diagnostic Radiology | DX: K22.89 Other specified disease of esophagus (principal) | CPT/HCPCS: 74246 ==

== ENCOUNTER 2023-09-15 15:48 | Outpatient (AMB) | payer MEDICARE, SELFPAY ==
--- NOTE | 2023-09-15 09:11 | MHC.OFFVISWM ---
Intake VS Expanded 09/15/23 09:12 Height 5 ft 2 in Weight 205 lb 6.4 oz BMI 37.6 Body Fat % 49.3 Body Fat Mass 101.2 Fat Free Mass 104.2 Visceral Fat Rating 18 Body Water % 34.8 Body Water Mass 71.4 Muscle Mass/Score 47.7 Intake Visit Reasons: (tv) F/U SWL Copy Operator Required: No Allergies acetaminophen [From Vicodin] Allergy (Severe, Verified 07/30/23 08:30) Anaphylaxis hydrocodone [From Vicodin] Allergy (Severe, Verified 07/30/23 08:30) Anaphylaxis Medication List - Last Reconciled 09/15/23 by ABRIL Richards allopurinol 100 mg PO BID amlodipine 2.5 mg PO DAILY cyclosporine 0.05% (Restasis) drps ophthalmic (eye) BID diphenhydramine HCl (Benadryl Allergy) 25 mg PO BEDTIME PRN famotidine (Pepcid) 20 mg PO DAILY simvastatin 40 mg PO DAILY HPI HPI Comments History of Present Illness Details The patient is a pleasant 68 year old female who returns to the clinic for pre-operative surgical weight loss management. They were last seen in the office on 08/28/23, recorded weight at that time was 210.8 pounds, with a BMI of 38.6. Today's weight is 205.4 pounds and BMI is 37.6. There has been a weight loss of 19.6 pounds since initiating the surgical weight loss program on 07/02/23 with a total body weight loss of 8.7 %. Pre op work up completed as follows: SWL classes:? 06/03 appts: cleared-08/06/23 ? ? RD appts: cleared-07/22/23 Labs: 07/04/23-ok H. pylori: 07/22/23-neg CXR: 07/04/23-nad EK07/04/23-poss inf infarct, cannot r/o anterior infarct - 07/07/23-nuc stress test ordered, scheduled 08/07/23- Myocardial perfusion imaging study shows likely normal myocardial perfusion. Gated LVEF 44% during stress and 32% at rest however visually appears to be normal. Correlate with echocardiogram. Transient ischemic dilatation not present. Saw Cardiology on 09/05/2023 with recommendation for echocardiogram and if there is no abnormality on echocardiogram than she will be able to proceed with bariatric surgery without any further intervention. ECHO 10/02/23 ABD U/S: 07/18/23-fatty liver, small cyst left lobe UGI: 09/11/23 The patient reports she is feeling well although has a bit of a cold form her granddaughter. She does get some sore knees with extended walking. Following the meal plan and not hungry. Current meal plan includes: 2 Premier Protein shakes, First shake (1 scoop in 8 oz low fat unsweetened almond milk or water) at 8am-10am, Second shake (1 scoop in 8 oz unsweetened almond milk or water) at 12pm-2pm 1 protein bar (Fit crunch bars at [employer], [employer], or [employer]) at 3pm-5pm. Dinner at 6pm (8 forks of protein and 8 forks of salad/vegetables). Drinking 64 oz of water Current exercise plan includes: stationary bike, 275-300 calories 5-6 x per week, water aerobics, 2 x/w, walking outside [employer] home videos [facility] Medical History Hx of cataract Hx of retinal detachment Surgical History Hx of hernia repair History of repair of ACL History of lateral meniscus repair of left knee History of colon resection Hx of kidney donation Family History Father Heart murmur Heart valve replaced by transplant Brother Heart valve replaced by transplant H/O heart bypass surgery Social History Alcohol intake: never Patient Tobacco Use Status: Former Tobacco user Years Smoked: quit 20 yrs ago Review of Systems Const All systems reviewed & are unremarkable except as noted in HPI and below Assessment & Plan Assessment & Plan (1) Obesity (BMI 30-39.9): Code(s): E66.9 - Obesity, unspecified Plan: Overall, the patient is doing very well. She is scheduled for her echocardiogram on 10/02/2023. She will continue her current meal plan and follow-up in the office in approximately 3 weeks after her echocardiogram. She does require 4 months within the bariatric program prior to surgery which will take her through the beginning of October. She continues to do very well texting her weight weekly. Telehealth Telehealth Location of provider rendering services: practice address Location of patient: address on file Patient Identification confirmed using: Name, : Yes Telehealth method: voice only Patient verbally consented to treatment: Yes Patient verbally consented to billing insurance company: Yes Patient informed of any privacy concerns related to visit: Yes Minutes spent on Phone/Video with Pt.: 15 Coding Level of Care Code Tele Est Pt Level 3 (32218) Diagnoses Obesity (BMI 30-39.9) E66.9 Time Spent (min) 20
[2023-09-15 09:12] VITALS: BMI 37.6
== END 2023-09-15 15:55 | disposition home or self-care (01) ==
LOC: HO.HBS 15:48
PROVIDERS: PCP Family Medicine; Visit Provider Physician Assistant Surgical
DX: E66.9 Obesity, unspecified (principal); Z68.37 Body mass index [BMI] 37.0-37.9, adult
CPT/HCPCS: 99442

== ENCOUNTER → 2023-09-15 15:48 | Outpatient (BNVA) | payer MEDICARE, SELFPAY | PROVIDERS: PCP Family Medicine; Visit Provider Physician Assistant Surgical ==

== ENCOUNTER → 2023-10-02 08:46 | Outpatient (REF) | payer MEDICARE, SELFPAY ==
--- NOTE | 2023-10-02 09:05 | CA_ITS ---
Transthoracic Echocardiogram Patient (Last, First, Middle): Vanessa Estevez, Gender: Female Date of : 1955 Age: 68 Procedure Date: 10/02/2023 Procedure Type: Transthoracic Echocardiogram Location: OP Height: 157.48 cm Weight: 90.72 kg BSA: 1.91 m2 Heart Rate: 76 bpm BP: 120 / 90 mmHg Billing And Accounting Staff Assistant: ASPEN Referring MD: Maurilio Acosta MD Symptoms: I25.10 - Atherosclerotic heart disease of [place] coronary artery without... Study Quality: Adequate ECG Rhythm: Sinus Conclusions: - The left ventricular systolic function is hyperdynamic. The visually estimated ejection fraction is >70%. - No obvious valvular pathology seen on this study. - There is mild dilatation of the ascending aorta measuring 4.00 cm. Findings Left Ventricle Normal left ventricular cavity size. There is mildly increased left ventricular wall thickness. The left ventricular systolic function is hyperdynamic. The visually estimated ejection fraction is >70%. Evidence suggests grade I (mild) diastolic dysfunction. LV peak GLS -17.8%, underestimation possible. Right Ventricle Normal right ventricular cavity size and systolic function. Atria Both atria are normal in size. Aortic Valve There is a normal trileaflet aortic valve. There is no aortic valve stenosis. There is no aortic valve regurgitation. Mitral Valve There is mild mitral annular calcification. There is no mitral valve regurgitation. There is no mitral valve stenosis. Pulmonic Valve The pulmonic valve is likely normal. Tricuspid Valve There is trace tricuspid valve regurgitation. There is no evidence of pulmonary hypertension. Great Vessels There is mild dilatation of the ascending aorta measuring 4.00 cm. Venous The inferior vena cava is normal in size and collapses greater than 50% with inspiration. Pericardium/Pleural Prominent epicardial adipose tissue noted. There is no evidence of pericardial effusion. Prior Study Comparison No prior study available for comparison. Recommendations, Care & Conclusions No obvious valvular pathology seen on this study. Measurements 2D Linear Measurements IVSd: 1.18 0.6-0.9/0.6-1.0 cm LVIDd: 2.44 3.9-5.3/4.2-5.9 cm LVIDd Index: 1.28 2.4-3.2/2.2-3.1 cm/m2 LVIDs: 1.39 2.0-3.6 cm LVPWd: 1.09 0.7-1.1 cm LA Diam: 2.90 2.7-3.8/3.0-4.0 cm LAIDs Index: 1.52 1.5-2.3 cm/m2 LV Mass: 93.56 67-162/88-224 g LV Mass Index: 48.98 43-95/49-115 g/m2 LVOT Diam: 2.00 3.0+(-)1.3 cm 2D Systolic Function EF 4C: 60.40 >55% EF 2C: 68.70 >55% EF BiP: 64.70 >55% Mitral Valve MV Pk E: 0.51 MV PK A: 0.90 MV Decel Time: 391.00 E/A: 0.60 E'Lateral: 8.70 E'Medial: 7.29 E/E' Med: 7.00 E/E' Lat: 5.90 PHT: 114.00 MVA PHT: 1.93 Decel [place]: 1.30 LVOT LVOT Pk Addy: 1.01 LVOT Mn Addy: 0.73 LVOT VTI: 0.20 LVOT Pk Grad: 4.00 LVOT Mn Grad: 3.00 LVOT Diam: 2.00 LVOT Area: 3.14 Diastolic Function MV Pk E: 0.51 MV Pk A: 0.90 E/A: 0.60 E'Medial: 7.29 E/E' Med: 7.00 E' Laterial: 8.70 E/E' Lat: 5.90 Right Ventricle TAPSE (mm): 17.80 TVS' Addy: 12.30 Tricuspid Valve TR Pk Addy: 2.06 TR Pk Grad: 17.00 RA Press: 3.00 RVSP: 20.00 Great Vessels Aorta Sinus of Valsalva: 3.80 2.0-3.5 cm Ao Asc: 4.00 2.1-3.4 cm Pulmonary Valve PV Pk Addy: 1.05 Peak PV Grad: 4.00 Updated in Other Vendor System with Status of Final Maurilio Acosta MD electronically signed on 10/05/2023 12:03:01 PM with status of Final
== END ==
LOC: HO.CARD 08:46
PROVIDERS: PCP Family Medicine; Visit Provider Internal Medicine
DX: Z01.810 Encounter for preprocedural cardiovascular examination (principal); I25.10 Atherosclerotic heart disease of native coronary artery without angina pectoris
CPT/HCPCS: 93306; 93356

== ENCOUNTER → 2023-10-02 09:05 | Outpatient (BNV) | payer MEDICARE, SELFPAY | PROVIDERS: PCP Family Medicine; Visit Provider Internal Medicine | DX: I25.10 Atherosclerotic heart disease of native coronary artery without angina pectoris (principal) | CPT/HCPCS: 93306 ==

== ENCOUNTER 2023-10-14 09:02 | Outpatient (AMB) | payer MEDICARE, SELFPAY ==
--- NOTE | 2023-10-14 08:01 | A.OFFVIS_ITS ---
Intake VS Expanded 10/14/23 08:07 Height 5 ft 2 in Weight 197 lb 3.2 oz BMI 36.1 Body Fat % 47 Body Fat Mass 92.6 Fat Free Mass 104.6 Visceral Fat Rating 17 Body Water % 36.4 Body Water Mass 71.7 Muscle Mass/Score 98.2 Intake Visit Reasons: (tv) F/U SWL Blueberry Grower Required: No Allergies acetaminophen [From Vicodin] Allergy (Severe, Verified 07/30/23 08:30) Anaphylaxis hydrocodone [From Vicodin] Allergy (Severe, Verified 07/30/23 08:30) Anaphylaxis Medication List - Last Reconciled 10/14/23 by ABRIL Richards allopurinol 100 mg PO BID amlodipine 2.5 mg PO DAILY cyclosporine 0.05% (Restasis) drps ophthalmic (eye) BID diphenhydramine HCl (Benadryl Allergy) 25 mg PO BEDTIME PRN famotidine (Pepcid) 20 mg PO DAILY simvastatin 40 mg PO DAILY HPI HPI Comments History of Present Illness Details The patient is a pleasant 68 year old female who returns to the clinic for pre-operative surgical weight loss management. They were last seen in the office on 09/15/2023, recorded weight at that time was 205.4 pounds, with a BMI of 37.6. Today's weight is 197.2 pounds and BMI is 36.1. There has been a weight loss of 27.8 pounds since initiating the surgical weight loss program on 07/02/2023 with a total body weight loss of 12.3 %. Pre op work up completed as follows: SWL classes:? 06/03 appts: cleared-08/06/23 ? ? RD appts: cleared-07/22/23 Labs: 07/04/23-ok H. pylori: 07/22/23-neg CXR: 07/04/23-nad EK07/04/23-poss inf infarct, cannot r/o anterior infarct - 07/07/23-nuc stress test ordered, scheduled 08/07/23- Myocardial perfusion imaging study shows likely normal myocardial perfusion. Gated LVEF 44% during stress and 32% at rest however visually appears to be normal. Correlate with echocardiogram. Transient ischemic dilatation not present. Saw Cardiology on 09/05/2023 with recommendation for echocardiogram and if there is no abnormality on echocardiogram than she will be able to proceed with bariatric surgery without any further intervention. ECHO 10/02/23-left ventricular ejection fraction hyperdynamic at approximately 70% without valvular pathology. Mild dilatation of the ascending aorta, approximately 4 cm. ABD U/S: 07/18/23-fatty liver, small cyst left lobe UGI: 09/11/23-small HH The patient reports she is feeling well although has a bit of a cold form her granddaughter. She does get some sore knees with extended walking. Following the meal plan and not hungry. Current meal plan includes: 2 Premier Protein shakes, First shake (1 scoop in 8 oz low fat unsweetened almond milk) at 8am-10am, Second shake (1 scoop in 8 oz unsweetened almond milk) at 12pm-2pm 1 protein bar (Fit crunch bars at [employer] , [facility], or [employer]) at 3pm-5pm. Dinner at 6pm (8 forks of protein and 8 forks of salad/vegetables). Drinking 64 oz of water Current exercise plan includes: stationary bike, 275-300 calories 5-6 x per week, water aerobics, 2 x/w, walking outside 8 pound weight home video PFSH Medical History Hx of cataract Hx of retinal detachment Surgical History Hx of hernia repair History of repair of ACL History of lateral meniscus repair of left knee History of colon resection Hx of kidney donation Family History Father Heart murmur Heart valve replaced by transplant Brother Heart valve replaced by transplant H/O heart bypass surgery Social History Alcohol intake: never Patient Tobacco Use Status: Former Tobacco user Years Smoked: quit 20 yrs ago Review of Systems Const All systems reviewed & are unremarkable except as noted in HPI and below Assessment & Plan Assessment & Plan (1) Obesity (BMI 30-39.9): Code(s): E66.9 - Obesity, unspecified Plan: Continue current meal plan. She is approaching 4 months in the program as required by Medicare. We will refer her now to Dr. Virgen for continued preoperative planning for possible surgery in October. She will continue to text me until such time that she has her appointment with him. All questions were answered to her satisfaction. I did reach out to Cardiology regarding official clearance for bariatric surgery based on her echocardiogram of 10/02/2023, awaiting response Telehealth Telehealth Location of provider rendering services: practice address Location of patient: address on file Patient Identification confirmed using: Name, : Yes Telehealth method: voice only Patient verbally consented to treatment: Yes Patient verbally consented to billing insurance company: Yes Patient informed of any privacy concerns related to visit: Yes Minutes spent on Phone/Video with Pt.: 12 Coding Level of Care Code Tele Est Pt Level 3 (16287) Diagnoses Obesity (BMI 30-39.9) E66.9 Time Spent (min) 20
[2023-10-14 08:07] VITALS: BMI 36.1
== END 2023-10-14 09:04 | disposition home or self-care (01) ==
LOC: HO.HBS 09:02
PROVIDERS: PCP Family Medicine; Visit Provider Physician Assistant Surgical
DX: E66.9 Obesity, unspecified (principal); Z68.36 Body mass index [BMI] 36.0-36.9, adult
CPT/HCPCS: 99442

== ENCOUNTER → 2023-10-14 09:02 | Outpatient (BNVA) | payer MEDICARE, SELFPAY | PROVIDERS: PCP Family Medicine; Visit Provider Physician Assistant Surgical | DX: E66.9 Obesity, unspecified (principal) ==

== ENCOUNTER 2023-11-07 08:26 | Outpatient (AMB) | payer MEDICARE, SELFPAY ==
--- NOTE | 2023-11-07 15:24 | A.OFFVIS_ITS ---
Intake VS Expanded 11/07/23 16:18 Height 5 ft 2 in Weight 193 lb 8 oz BMI 35.4 Body Fat % 46.1 Body Fat Mass 89.3 Fat Free Mass 104.4 Visceral Fat Rating 16 Body Water % 37 Body Water Mass 71.7 Basal Metabolic Rate/Score 1,381 Intake Visit Reasons: TV Consult/Transfer Karlos Allergies hydrocodone [From Vicodin] Allergy (Severe, Verified 07/30/23 08:30) Anaphylaxis Medication List - Last Reconciled 11/07/23 by Denver Virgen MD allopurinol 100 mg PO BID amlodipine 2.5 mg PO DAILY cyclosporine 0.05% (Restasis) drps ophthalmic (eye) BID diphenhydramine HCl (Benadryl Allergy) 25 mg PO BEDTIME PRN famotidine (Pepcid) 20 mg PO DAILY simvastatin 40 mg PO DAILY HPI TV Consult/Transfer Karlos 2 HPI Details Start time: 3pm, End time: 3.50pm ?I spent 40 minutes speaking with the patient on the phone plus an additional 10 minutes reviewing and updating records for a total of 50 minutes HPI Comments History of Present Illness Details Overall weight loss: 30lbs, or 13.4% TBWL Is doing 2 Premier protein shakes (1 scoop in 8oz almond milk), one Fit Crunch protein bar and one meal (8 forks of protein and 8 forks of salad or vegetables) Exercise: is doing home stationary bike x6-7/wk for 240 calories, exercise videos and water aerobics PFSH Medical History (Updated 11/07/23 @ 16:42 by Denver Virgen MD) GERD (gastroesophageal reflux disease) Gout Osteopenia Hx of cataract Hx of retinal detachment Surgical History Hx of hernia repair History of repair of ACL History of lateral meniscus repair of left knee History of colon resection Hx of kidney donation Family History Father Heart murmur Heart valve replaced by transplant Brother Heart valve replaced by transplant H/O heart bypass surgery Social History Alcohol intake: never Patient Tobacco Use Status: Former Tobacco user Years Smoked: quit 20 yrs ago Physical Exam Vital Signs: BMI result Body Mass Index 35.4 Assessment & Plan Assessment & Plan (1) Obesity: Code(s): E66.9 - Obesity, unspecified Qualifiers: Obesity type: due to excess calories Obesity classification: adult class 2 (BMI 35 - 39.9) Serious obesity comorbidity presence: with serious comorbidity Body mass index: BMI 35.0-35.9 Qualified Code(s): E66.01 - Morbid (severe) obesity due to excess calories; Z68.35 - Body mass index [BMI] 35.0- 35.9, adult Plan: 1. Plan for lap sleeve gastrectomy including upper GI endoscopy. All tests has been completed and reviewed and the patient is cleared for the surgery. ?If diaphragmatic or ventral hernias are present at time of surgery, these will be repaired laparoscopically as well. Risks and complications were discussed in detail including possible conversion to an open procedure, anastomotic leak, bleeding requiring transfusion, small bowel obstruction, , DVT and pulmonary embolism, cardiac, or pulmonary complications, as buttermilk drier operator complications such as anastomotic ulcer, insufficient weight loss and vitamin deficiencies. I emphasized the importance of close follow-up, adherence to i nstructions and good communication. So far she has proven to be an excellent communicator and very compliant with all our directions accomplishing a great weight loss. I believe that she is an excellent candidate and she is ready. 2. Continue same nutritional plan of 2 Premier protein shakes (1 scoop in 8oz almond milk), one Fit Crunch protein bar and one meal (8 forks of protein and 8 forks of salad or vegetables) 3. Exercise: continue home stationary bike x6-7/wk for 240 calories, exercise videos and water aerobics 4. Continue to send me weight measurements weekly on Fridays Telehealth Telehealth Location of provider rendering services: practice address Location of patient: address on file Patient Identification confirmed using: Name, : Yes Telehealth method: voice only Patient verbally consented to treatment: Yes Patient verbally consented to billing insurance company: Yes Patient informed of any privacy concerns related to visit: Yes Minutes spent on Phone/Video with Pt.: 50 Coding Level of Care Code Tele Est Pt Level 4 (66760) Diagnoses Class 2 severe obesity due to excess calories with serious comorbidity and body mass index (BMI) of 35.0 to 35.9 in adult E66.01; Z68.35 Obesity type: due to excess calories Obesity classification: adult class 2 (BMI 35 - 39.9) Serious obesity comorbidity presence: with serious comorbidity Body mass index: BMI 35.0-35.9 Time Spent (min) 50
[2023-11-07 16:18] VITALS: BMI 35.4
== END 2023-11-07 16:45 | disposition home or self-care (01) ==
LOC: HO.HBS 08:26
PROVIDERS: PCP Family Medicine; Visit Provider Surgery
DX: E66.01 Morbid (severe) obesity due to excess calories (principal); Z68.35 Body mass index [BMI] 35.0-35.9, adult
CPT/HCPCS: 99443

== ENCOUNTER → 2023-11-07 08:26 | Outpatient (BNVA) | payer MEDICARE, SELFPAY | PROVIDERS: PCP Family Medicine; Visit Provider Surgery ==

== ENCOUNTER 2023-11-14 08:17 | Outpatient (AMB) | payer MEDICARE, SELFPAY ==
--- NOTE | 2023-11-14 10:37 | A.OFFVIS_ITS ---
Intake VS Expanded 11/14/23 10:54 Height 5 ft 2 in Weight 193 lb 8 oz BMI 35.4 Body Fat % 48.1 Body Fat Mass 93.2 Fat Free Mass 100.6 Visceral Fat Rating 18 Body Water % 35.6 Body Water Mass 68.9 Basal Metabolic Rate/Score 1,352 Intake Visit Reasons: TV Pre Op LSG 11/25/23 Allergies hydrocodone [From Vicodin] Allergy (Severe, Verified 11/14/23 10:37) Anaphylaxis Medication List - Last Reconciled 11/14/23 by Denver Virgen MD allopurinol 100 mg PO BID amlodipine 2.5 mg PO DAILY cyclosporine 0.05% (Restasis) drps ophthalmic (eye) BID diphenhydramine HCl (Benadryl Allergy) 25 mg PO BEDTIME PRN famotidine (Pepcid) 20 mg PO DAILY ondansetron 4 mg PO Q12H pantoprazole 40 mg PO DAILY polyethylene glycol 3350 (Miralax) 17 grams PO DAILY simvastatin 40 mg PO DAILY sucralfate 10 mL PO BID HPI TV Pre Op LSG 11/25/23 HPI Details Start time: 10.32am, End time: 11.02am ?I spent 25 minutes speaking with the patient on the phone plus an additional 5 minutes reviewing and updating records for a total of 30 minutes HPI Comments History of Present Illness Details Overall weight loss: 30lbs, or 13.4% TBWL Is doing 2 Premier protein shakes (1 scoop in almond milk), one Fit Crunch protein bar and one meal (8 forkfuls of protein and 8 forkfuls of salad) Exercise: stationary bike daily for 250 calories [facility] Medical History (Updated 11/07/23 @ 16:42 by Denver Virgen MD) GERD (gastroesophageal reflux disease) Gout Osteopenia Hx of cataract Hx of retinal detachment Surgical History Hx of hernia repair History of repair of ACL History of lateral meniscus repair of left knee History of colon resection Hx of kidney donation Family History Father Heart murmur Heart valve replaced by transplant Brother Heart valve replaced by transplant H/O heart bypass surgery Social History Alcohol intake: never Patient Tobacco Use Status: Former Tobacco user Years Smoked: quit 20 yrs ago Assessment & Plan Assessment & Plan (1) Obesity (BMI 30-39.9): Code(s): E66.9 - Obesity, unspecified Plan: 1. Plan for lap sleeve gastrectomy including upper GI endoscopy. All tests has been completed and reviewed and the patient is cleared for the surgery. ?If diaphragmatic or ventral hernias are present at time of surgery, these will be repaired laparoscopically as well. Risks and complications were discussed in detail including possible conversion to an open procedure, anastomotic leak, bleeding requiring transfusion, small bowel obstruction, , DVT and pulmonary embolism, cardiac, or pulmonary complications, as termite control representative complications such as anastomotic ulcer, insufficient weight loss and vitamin deficiencies. I emphasized the importance of close follow-up, adherence to instructions and good communication. So far she has proven to be an excellent communicator and very compliant with all our directions accomplishing a great weight loss. I believe that she is an excellent candidate and she is ready. 2. Preop prescriptions were provided and explained the purpose of each one. Need to be purchased preop. Start Pantoprazole now as you get it from the pharmacy, 1 pill per day. Sucralfate and Zofran are for after surgery as needed. 3. Bowel prep: please do 7 packets ?of Miralax mixing each one with a an 8oz glass of water, crystal light, gatorade zero, or propel ?on 11/23/23 and the same amount on 11/24/23. The Miralax you begin with one packet at a time in 8oz water or crystal light, gatorade zero, or propel ?as early in the day as you can and you do them back to back until you finish them. Continue the protein shakes during? the bowel prep. 4. Needs to purchase 1oz medicine cups . 5. Needs to purchase Children's liquid Tylenol for postop pain control. 6. Avoid aspirin, motrin, Advil, Aleve, Ibuprofen, Naproxyn. Tylenol is OK. 7. She needs to purchase the Celebrate 4:1 protein shakes from the hospital's gift shop. 8. Will do basic preop blood work-up any day between Friday09/30/22 and Friday10/04/22 fasting for 12 hours and is scheduled to see the Anesthesiologist prior to the day of surgery. 9. Importance of adherence to postop folllow-up and recommendations was underscored and she understands that. 10. Stop food and bars as of tomorrow 11/15/2023 and continue with one Premier protein shake (HALF scoop in 8oz almond milk) at 7am-9am and four more Premier protein shakes with ONE scoop EACH in 8oz of almond milk at 10am-12pm, 1pm-3pm, 4pm-6pm and 7pm-9pm 11. No soups, broths or V8 12. The patient's?medical?history has been reviewed and they are considered low risk for post op DVT and therefore DVT prophylaxis is not considered necessary. Travel after surgery was reviewed. The patient has not disclosed any travel plans during the first 30 days after surgery and they have been advised that within the first 30 days after surgery any bus, plane, train or car travel over 2 hours in duration is contraindicated due to the possibility of developing blood clots from immobility. Any travel, needs to include periods of ambulation of 10 minutes in duration every 2 hours.? Patient was instructed to discuss any plans for travel during this period with their bariatric surgeon.? 13. Please take at the day of surgery the following medications: Only the amlodipine. Please check your blood pressure daily in the morning. If it is below 120/70, please do not take the Amlodipine. 14. Stop any control pills and don't use them for one month after surgery 15. Absolutely no smoking or vaping, or marijuana until the surgery and for at least the first 4 weeks. Only nicotine patches are allowed. 16. Send me weight measurements on Friday11/21/23 and then on Friday11/25/23 the day of surgery before you go to the hospital. 17. Avoid any steroids by mouth for any reason. Let me know if someone prescribes them to you 18. These instructions supersede anything else you read in the handbook, anything you watched in videos or classes or you were told by any other provider. If there is any conflict, you follow the above instructions and nothing else. Orders: Orders Comprehensive Met. Panel Today E66.9 - Obesity, unspecified Hemoglobin A1c Today E66.9 - Obesity, unspecified Lipid Panel Today E66.9 - Obesity, unspecified TSH reflex Free T4 Today E66.9 - Obesity, unspecified Prothrombin Time INR Today E66.9 - Obesity, unspecified Type and Screen Today E66.9 - Obesity, unspecified Partial Thromboplastin Time Today E66.9 - Obesity, unspecified C Reactive Protein Today E66.9 - Obesity, unspecified Complete Blood Count Auto Diff Today E66.9 - Obesity, unspecified Insulin Today E66.9 - Obesity, unspecified Medications: New sucralfate 10 mL PO BID 600 mL 2RF K21.9 - Gastro-esophageal reflux disease without esophagitis pantoprazole 40 mg PO DAILY 90 tabs 0RF K21.9 - Gastro-esophageal reflux disease without esophagitis ondansetron Only take one every 12 hours as needed if you have nausea 4 mg PO Q12H 20 tabs 0RF nausea and vomiting R11.0 - Nausea polyethylene glycol 3350 (Miralax) Mix each packet with 8oz of water, Crystal light, or Gatorade zero, or Propel and do 7 packets on 11/23/23 and another 7 packets on 11/24/23 17 grams PO DAILY 14 ea 0RF Z01.818 - Encounter for other preprocedural examination Telehealth Telehealth Location of provider rendering services: practice address Location of patient: address on file Patient Identification confirmed using: Name, : Yes Telehealth method: voice only Patient verbally consented to treatment: Yes Patient verbally consented to billing insurance company: Yes Patient informed of any privacy concerns related to visit: Yes Minutes spent on Phone/Video with Pt.: 30 Coding Level of Care Code Tele Est Pt Level 4 (69016) Diagnoses Obesity (BMI 30-39.9) E66.9 Time Spent (min) 30
[2023-11-14 10:54] VITALS: BMI 35.4
== END 2023-11-14 11:04 | disposition home or self-care (01) ==
LOC: HO.HBS 08:17
PROVIDERS: PCP Family Medicine; Visit Provider Surgery
DX: E66.9 Obesity, unspecified (principal); Z68.35 Body mass index [BMI] 35.0-35.9, adult
CPT/HCPCS: 99499

== ENCOUNTER → 2023-11-14 08:17 | Outpatient (BNVA) | payer MEDICARE, SELFPAY | PROVIDERS: PCP Family Medicine; Visit Provider Surgery ==

== ENCOUNTER 2023-11-25 11:23 | Inpatient (IN) | payer MEDICARE, SELFPAY ==
[2023-11-14 11:28] VITALS: BMI 35.3
[2023-11-18 08:27] LABS: MANUAL DIFF FLAG NO
[2023-11-18 08:37] LABS: Basophils Absolute Auto 0.1 X10*3/uL (0.0-0.2); Basophils Percent Auto 1.2 % (0-2); Eosinophils Absolute Auto 0.1 X10*3/uL (0.0-0.4); Eosinophils Percent Auto 0.8 % (0-4); Hematocrit 46.1 % (37.0-47.0); Hemoglobin 15.9 g/dl (12.0-16.0); Imm Gran Abs Auto 0.02 X10*3/uL (0.00-0.03); Imm Gran Pct Auto 0.3 % (0.0-0.4); Lymphocytes Absolute Auto 1.5 X10*3/uL (1.2-4.9); Lymphocytes Percent Auto 22.9 % (20-40); Mean Corpuscular HGB Conc 34.5 g/dl (31.0-35.0); Mean Corpuscular Hemoglobin 35.7 pg (27.0-33.0); Mean Corpuscular Volume 103.4 fL (80.0-98.0); Mean Platelet Volume 10.6 fL (9.4-12.3); Monocytes Absolute Auto 0.6 X10*3/uL (0.1-1.2); Neutrophils Absolute Auto 4.3 x10*3/uL (2.0-8.3); Neutrophils Percent Auto 65.8 % (45-73); Platelet Count 233 X10*3/uL (160-400); Red Blood Count 4.46 X10*6/uL (4.20-5.50); Red Cell Distribution Width 12.8 % (11.0-16.0); White Blood Count 6.5 X10*3/uL (4.8-10.8)
[2023-11-18 08:59] LABS: Prothrombin Time 11.6 SEC (11.1-13.3)
[2023-11-18 09:02] LABS: Partial Thromboplastin Time 28.1 SEC (26.0-36.4)
[2023-11-18 09:17] LABS: Alanine Aminotransferase 26 U/L (0-31); Albumin Level 4.4 g/dL (3.5-5.0); Alkaline Phosphatase 77 U/L (39-117); Anion Gap 14 (12-20); Aspartate Amino Transferase 27 U/L (5-31); Bilirubin Total 0.6 mg/dL (0.0-1.0); Blood Urea Nitrogen 25 mg/dL (9-16); C Reactive Protein 0.43 mg/dL (< or = 0.50); Calcium 9.6 mg/dL (8.4-10.2); Carbon Dioxide 28 mmol/L (22-29); Chloride 105 mmol/L (96-108); Cholesterol 166 mg/dL (<200); Creatinine Clr Calc Pharmacy 52.4; Estimated Glomerular Filt Rate 53; Glucose Random 95 mg/dL (60-115); HDL Cholesterol 48 mg/dL (>40); LDL Cholesterol Calculated 91 mg/dL (<100); Potassium 4.5 mmol/L (3.3-5.1); Sodium 142 mmol/L (135-145); Total Protein 7.7 g/dL (6.5-8.0); Triglycerides 136 mg/dL (<150)
[2023-11-18 09:31] LABS: Insulin 6 uU/mL (2-29)
[2023-11-18 12:04] LABS: Estimated Average Glucose 94 mg/dL; Hemoglobin A1c % 4.9 % (<6.0)
[2023-11-25] VITALS (9 sets, daily range): BP systolic 113–156; BP diastolic 69–95; PULSE 72–100; RESP 16–20; TEMP 36.2–36.8; O2SAT 94–100; BMI 37.0
--- OUTSIDE RECORDS SUMMARY | 2023-11-25 11:25 | XMS_ITS | Continuity of Care Document ---
Author Name Unknown Organization [facility] Address [address] [place] [id number]- Care Team Providers Care Computer Hardware Engineer Name Role Phone Vanessa Garcia MD Primary Care Physician Encounter 01/09/22 - 01/29/22 [facility] [address] [place] [id number] Discharge Disposition: GOALS MET Allergies, Adverse Reactions, Alerts Substance Reaction Severity Status LORENZANA-2 inhibitors Active Immunizations Given and Recorded Vaccine Date Status Refusal Reason SARS-CoV-2 (COVID-19) mRNA-1273 vaccine 08/21/21 R ecorded SARS-CoV-2 (COVID-19) mRNA-1273 vaccine 01/27/21 R ecorded SARS-CoV-2 (COVID-19) mRNA-1273 vaccine 12/29/20 R ecorded influenza virus vaccine, inactivated 08/10/21 Gen rded influenza virus vaccine, inactivated 08/18/20 Gen rded influenza virus vaccine, inactivated 08/16/16 Gen rded zoster vaccine, inactivated 11/03/20 Recorded zoster vaccine, inactivated 08/18/20 Recorded Zoster Vaccine Live 03/07/16 Recorded Medications acetaminophen 325 mg oral tablet 650 mg, By Mouth, Every 6 hours, Refills 0, Maintenance, 12/31/21 12:32:00 EST, Partial fill upon patient request if the prescription is for a schedule II opioid drug. Start Date: 12/31/21 Status: Ordered allopurinol 100 mg oral tablet 1 tablet = 100 mg, By Mouth, 2 times a day, 0 Refills, Maintenance, 12/29/14 7:50:36 Start Date: 12/29/14 Status: Ordered ascorbic acid 250 mg oral tablet 2 tablet = 500 mg, By Mouth, Daily in AM, # 60 tablet, 0 Refills, Maintenance, 01/07/22 11:56:00 EDT, Tablet, [facility]/pharmacy #[id number], Partial fill upon patient request if the prescription is for a schedule II opioid drug., 160.2, cm, 01/07/22 8:27:00 EDT,... Start Date: 01/07/22 Status: Ordered Calcium Calcium, Refills 0, Maintenance, 12/29/14 7:51:10, Compound Start Date: 12/29/14 Status: Ordered cholecalciferol 1000 intl units oral capsule 1 capsule = 25 mcg, By Mouth, Daily, # 30 capsule, 0 Refills, Maintenance, 01/07/22 11:56:00 EDT, Capsule, [facility]/pharmacy #[id number], Partial fill upon patient request if the prescription is for a schedule II opioid drug., 160.2, cm, 01/07/22 8:27:00 EDT, He... Start Date: 01/07/22 Status: Ordered Docusate Sodium Capsule 100 mg, 1, capsule, By Mouth, 2 times a day, Refills 0, Maintenance, 12/31/21 12:32:00 EST, Partialfill upon patient request if the prescription is for a schedule II opioid drug. Start Date: 12/31/21 Status: Ordered ferrous sulfate 325 mg oral enteric coated tablet 325 mg, By Mouth, Daily, # 30 capsule, Refills 0, Tot. Refills 0, Maintenance, 01/07/22 11:57:00 EDT, Route to Pharmacy Electronically, [facility]/pharmacy #[id number], Partial fill upon patient request if the prescription is for a schedule II opioid drug., 160.2,... Start Date: 01/07/22 Status: Ordered MiraLax Powder 1 pack/packet = 17 Gm, By Mouth, Daily, PRN Constipation, 0 Refills, Maintenance, 12/31/21 12:33:00EST, Powder, Partial fill upon patient request if the prescription is for a schedule II opioid drug. Start Date: 12/31/21 Status: Ordered MOM Liquid 30 mL, By Mouth, Daily, PRN Constipation, 0 Refills, Maintenance, 12/31/21 12:33:00 EST, Suspension, Partial fill upon patient request if the prescription is for a schedule II opioid drug. Start Date: 12/31/21 Status: Ordered Multivitamin By Mouth, Daily, 0 Refills, Maintenance, 12/29/14 7:51:28 Start Date: 12/29/14 Status: Ordered NuLYTELY with Flavor Packs oral powder for reconstitution 240 mL, By Mouth, Every 10 minutes, # 4,000 mL, 0 Refills, Maintenance, 12/29/14 8:14:03, 240 mL ByMouth Every 10 minutes Start Date: 12/29/14 Status: Ordered pantoprazole 40 mg oral delayed release tablet = 40 mg, By Mouth, Daily, # 30 tablet, 0 Refills, Maintenance, 01/07/22 11:58:00 EDT, EC Tablet, 160.2, cm, 01/07/22 8:27:00 EDT, Height, 109.8, kg, 12/31/21 21:23:00 EST, Dry Weight Start Date: 01/07/22 Status: Ordered senna 187 mg oral tablet 2 tablet = 17.2 mg, By Mouth, Daily at bedtime, 0 Refills, Maintenance, 12/31/21 12:33:00 EST, Tablet, Partial fill upon patient request if the prescription is for a schedule II opioid drug. Start Date: 12/31/21 Status: Ordered simethicone 80 mg oral tablet, chewable 80 mg, 1, tablet, Chew, 3 times a day, Refills 0, Maintenance, 12/31/21 12:33:00 EST, Partial fill upon patient request if the prescription is for a schedule II opioid drug. Start Date: 12/31/21 Status: Ordered simvastatin 40 mg oral tablet 40 mg, 1, tablet, By Mouth, Daily at bedtime, # 30 tablet, Refills 0, Tot. Refills 0, Maintenance, 01/07/22 11:58:00 EDT, Route to Pharmacy Electronically, [facility]/pharmacy #[id number], Partial fill upon patient request if the prescription is for a schedule II... Start Date: 01/07/22 Status: Ordered Walker See Instructions, # 1 each, Maintenance, wheeled walker, 01/07/22 10:00:00 EDT, Supply Start Date: 01/07/22 Status: Ordered Walker See Instructions, # 1 each, Maintenance, wheeled walker, 01/07/22 11:42:00 EDT, Supply Start Date: 01/07/22 Status: Ordered Problem List Condition Effective Dates Status Health Status Inform ant Acute hypoxemic respiratory failure(Confirmed) Active Acute blood loss as cause of postoperative anemia(Confirmed) Active Closed 2-part intertrochante asuncion fracture of femur(Confirmed) Active Fall(Confirmed) Active Osteoporotic fracture of lef t hip(Confirmed) Active H/O diverticulitis of colon(Confirmed) Active Hypercholesteremia(Confirmed) Active Leukocytosis(Confirmed) Active Macrocytosis without anemia(Confirmed) Active Encounter for screening colonoscopy(Confirmed) Active Severe obesity(Confirmed) Active
--- OUTSIDE RECORDS SUMMARY | 2023-11-25 11:25 | XMS_ITS | Continuity of Care Document ---
Author Name Unknown Organization [facility] ter Address [address] [place] [id number]- Care Team Providers Care Sanipractic Physician Name Role Phone Jose NAQVI, Vanessa Cervantes Primary Care Physician Encounter [facility] Date(s): 12/27/21 - 12/31/[address] [id number] Discharge Disposition: Disch/Trans to IP Rehab or unit w/in Hos Attending Physician: Leonides Jones MD Admitting Physician: Danyelle Melton MD Referring Physician: Not on Staff, Referring MD Allergies, Adverse Reactions, Alerts Substance Reaction Severity [...] Ordered ascorbic acid 250 mg oral tablet = 250 mg, By Mouth, 2 times a day with meals, 0 Refills, Maintenance, 12/31/21 12:32:00 EST, Tablet, Partial fill upon patient request if the prescription is for a schedule II opioid drug. Start Date: 12/31/21 Status: Ordered bisacodyl 10 mg rectal suppository 1 supp = 10 mg, Rectally, Daily, PRN Constipation, 0 Refills, Maintenance, 12/31/21 12:32:00 EST, Suppository, Partial fill upon patient request if the prescription is for a schedule II opioid drug. Start Date: 12/31/21 Status: Ordered Calcium Calcium, Refills 0, Maintenance, 12/29/14 7:51:10, Compound Start Date: 12/29/14 Status: Ordered cholecalciferol 1000 intl units oral capsule By Mouth, Daily, 0 Refills, Maintenance, 12/31/21 12:32:00 EST, Capsule, Partial fill upon patient request if the prescription is for a schedule II opioid drug. Start Date: 12/31/21 Status: Ordered Docusate Sodium Capsule 100 mg, 1, capsule, By Mouth, 2 times a day, Refills 0, Maintenance, 12/31/21 12:32:00 EST, Partialfill upon patient request if the prescription is for a schedule II opioid drug. Start Date: 12/31/21 Status: Ordered Enoxaparin 0.4 mL = 40 mg, Subcutaneous Injection, Daily, 0 Refills, Maintenance, 12/31/21 12:32:00 EST, Injection, Partial fill upon patient request if the prescription is for a schedule II opioid drug. Start Date: 12/31/21 Status: Ordered ferrous sulfate 325 mg oral enteric coated tablet 325 mg, By Mouth, Daily, Refills 0, Maintenance, 12/31/21 12:33:00 EST, Partial fill upon patient request if the prescription is for a schedule II opioid drug. Start Date: 12/31/21 Status: Ordered MiraLax Powder 1 pack/packet = [...] 10 minutes Start Date: 12/29/14 Status: Ordered oxyCODONE 5 mg oral tablet 10 mg, Tablet, By Mouth, Every 4 hours, PRN for Pain , Severe, Routine, 12/28/21 22:55:00 EST Start Date: 12/28/21 Stop Date: 01/04/22 Status: Ordered oxyCODONE 5 mg oral tablet 10 mg, 2, tablet, By Mouth, Every 4 hours, PRN, Refills 0, Tot. Refills 0, Maintenance, Pain , Severe, 12/31/21 12:33:00 EST, Partial fill upon patient request if the prescription is for a schedule II opioid drug. Start Date: 12/31/21 Status: Ordered pantoprazole 40 mg oral delayed release tablet = 40 mg, By Mouth, Daily, 0 Refills, Maintenance, 12/31/21 12:33:00 EST, EC Tablet Start Date: 12/31/21 Status: Ordered senna 187 mg oral tablet [...] Status: Ordered simvastatin 40 mg oral tablet 1 tablet = 40 mg, By Mouth, Daily at bedtime, 0 Refills, Maintenance, 12/29/14 7:50:54 Start Date: 12/29/14 Status: Ordered Problem List Condition Effective Dates [...] for screening colonoscopy(Confirmed) Active Severe obesity(Confirmed) Active Procedures Procedure Date Related Diagnosis Body Site Status Treatment of intertrochanter ic, peritrochanteric, or subtrochanteric femoral fracture; with intramedullary implant, with or without interlocking screws and/or cerclage 1 12/28/21 [facility] ed 1125 degree 10mm x38cm interTAN Results Radiology Reports * Exam Date Time Procedure Performing Provider Status 12/28/21 9:00 PM C-Arm < 1 Hour Do , Jerod; Auth (Verif ied) Notes: (C-Arm < 1 Hour) Reason For Exam: Left hip intertan RESULT: C-Arm < 1 Hour Femur 2 Views Left, C-Arm < 1 Hour INDICATION: Reason: Left hip intertan; Special Instructions: TT: 55mins. FT: 57.4sec COMPARISONS: None TECHNIQUE: Fluoroscopy support was provided. There was no radiologist in attendance. FLUOROSCOPY TIME: 57.4 seconds EXPOSURE: 14.64 mGy TECHNOLOGIST TIME: 55 minutes FINDINGS: Fluoroscopy support was provided. There was no radiologist in attendance. Images demonstrate left hip ORIF with a long intramedullary adrienne with proximal interlocking transcervical screws and distal interlocking screw. Surgical screw noted through the proximal tibia. Moderate to severe tricompartmental degenerative changes of the left knee. No hardware complication. IMPRESSION: See above. WSN: [id number] Ordering Physician: Leonides Jones MD Dictated By: Spencer Ambriz MD Dictated Date/Time: 12/28/21 11:52 p Reviewed By: Spencer Ambriz MD Signed By: Spencer Ambriz MD Signed Date/Time: 12/28/21 11:52 pm Transcribed By: JANICE Transcribed Date/Time: 12/28/21 11:51 pm * Exam Date Time Procedure Performing Provider Status 12/28/21 9:00 PM XR Femur 2 Views Left , Jerod; Del (Verified) Notes: (XR Femur 2 Views Left) Reason For Exam: Left hip intertan RESULT: Femur 2 Views Left Femur 2 Views Left, C-Arm < 1 Hour INDICATION: Reason: Left hip intertan; Special Instructions: TT: 55mins. FT: 57.4sec COMPARISONS: None TECHNIQUE: Fluoroscopy support was provided. There was no radiologist in attendance. FLUOROSCOPY TIME: 57.4 seconds EXPOSURE: 14.64 mGy TECHNOLOGIST TIME: 55 minutes FINDINGS: Fluoroscopy support was provided. There was no radiologist in attendance. Images demonstrate left hip ORIF with a long intramedullary adrienne with proximal interlocking transcervical screws and distal interlocking screw. Surgical screw noted through the proximal tibia. Moderate to severe tricompartmental degenerative changes of the left knee. No hardware complication. IMPRESSION: See above. WSN: [id number] Ordering Physician: Leonides Jones MD Dictated By: Spencer Ambriz MD Dictated Date/Time: 12/28/21 11:52 p Reviewed By: Spencer Ambriz MD Signed By: Spencer Ambriz MD Signed Date/Time: 12/28/21 11:52 pm Transcribed By: JANICE Transcribed Date/Time: 12/28/21 11:51 pm * Exam Date Time Procedure Performing Provider Status 12/27/21 5:35 PM Chest Single Frontal View Rodrigo Crenshaw (Verified) Notes: (Chest Single Frontal View) Reason For Exam: Preop RESULT: Chest Single Frontal View Chest Single Frontal View Hx of Present Illness: Pt arrived via EMS from home post unwitnessed fall. Pt states no LOC and no blood thinners. Pt fell on her left hip and states she is having severe left hip pain. Pt arrived onbackboard and c-collar from EMS. Pt denies neck and back pain.; Reason: Preop; Clinical Question(s): Preop COMPARISON: None. FINDINGS: LINES AND TUBES: None. LUNGS AND PLEURA: Limited examination. There is slight prominence of vascular markings bilaterally which most likely is within the range of normal. I do not see a discrete mass. No findings of pneumonia. No pleural effusion. No pneumothorax. HEART, MEDIASTINUM AND LEA: Heart is normal in size. Normal upper mediastinal and hilar contour. BONES AND SOFT TISSUES: No acute abnormality. IMPRESSION: Limited exam. Most likely normal vascular markings bilaterally. No definite acute abnormality identified. WSN: [id number] Ordering Physician: Cassidy Poe Dictated By: Lexx Pichardo MD Dictated Date/Time: 12/27/21 5:41 pm Reviewed By: Lexx Pichardo MD Signed By: Lexx Pichardo MD Signed Date/Time: 12/27/21 5:41 pm Transcribed By: JANICE Transcribed Date/Time: 12/27/21 5:38 pm * Exam Date Time Procedure Performing Provider Status 12/27/21 5:35 PM Pelvis 1 or 2 Views Rodrigo Crenshaw; Auth (Verified) Notes: (Pelvis 1 or 2 Views) Reason For Exam: with Pain;Trauma RESULT: Pelvis 1 or 2 Views Femur 2 Views Left, Pelvis 1 or 2 Views, views Hx of Present Illness: Pt arrived via EMS from home post unwitnessed fall. Pt states no LOC and no blood thinners. Pt fell on her left hip and states she is having severe left hip pain. Pt arrived onbackboard and c-collar from EMS. Pt denies neck and back pain.; Reason: Trauma; with Pain; ClinicalQuestion(s): Fracture COMPARISON: None. FINDINGS: There is an intertrochanteric fracture seen in the left femur . No evidence of more distal fracture. Mild bilateral hip arthropathy. Status post mesh hernia repair. IMPRESSION: Intertrochanteric left femoral fracture. WSN: [id number] Ordering Physician: Cassidy Poe Dictated By: Lexx Pichardo MD Dictated Date/Time: 12/27/21 5:38 pm Reviewed By: Lexx Pichardo MD Signed By: Lexx Pichardo MD Signed Date/Time: 12/27/21 5:38 pm Transcribed By: JANICE Transcribed Date/Time: 12/27/21 5:36 pm * Exam Date Time Procedure Performing Provider Status 12/27/21 5:35 PM XR Femur 2 Views Left Rodrigo Crenshaw; Alicia th (Verified) Notes: (XR Femur 2 Views Left) Reason For Exam: with Pain;Trauma RESULT: Femur 2 Views Left Femur 2 Views Left, Pelvis 1 or 2 Views, views Hx of Present Illness: Pt arrived via EMS from home post unwitnessed fall. Pt states no LOC and no blood thinners. Pt fell on her left hip and states she is having severe left hip pain. Pt arrived onbackboard and c-collar from EMS. Pt denies neck and back pain.; Reason: Trauma; with Pain; ClinicalQuestion(s): Fracture COMPARISON: None. FINDINGS: There is an intertrochanteric fracture seen in the left femur . No evidence of more distal fracture. Mild bilateral hip arthropathy. Status post mesh hernia repair. IMPRESSION: Intertrochanteric left femoral fracture. WSN: [id number] Ordering Physician: Cassidy Poe Dictated By: Lexx Pichardo MD Dictated Date/Time: 12/27/21 5:38 pm Reviewed By: Lexx Pichardo MD Signed By: Lexx Pichardo MD Signed Date/Time: 12/27/21 5:38 pm Transcribed By: JANICE Transcribed Date/Time: 12/27/21 5:36 pm Vital Signs Most recent to oldest [Reference Range]: 1 2 3 Height 161.3 cm (12/31/21 3:45 PM) 161.3 cm (12/31/21 6:20 AM) 161.3 cm (12/31/21 5:00 AM) Weight 107.4 kg (12/28/21 7:42 PM) 107.4 kg (12/27/21 10:30 PM) 100 kg (12/27/21 10:21 PM) Oxygen Saturation [94-100 %] 100 % (12/31/21 3:45 PM) 97 % (12/31/21 6:20 AM) 94 % (12/31/21 5:00 AM) Pulse Rate [55-90 bpm] 94 bpm *H* (12/31/21 3:45 PM) 94 bpm *H* (12/31/21 6:20 AM) 87 bpm (12/31/21 5:00 AM) Body Mass Index [18.5-24.99] 41.28 *>HHI* (12/28/21 7:42 PM) 41.28 *>HHI* (12/27/21 10:30 PM) Blood Pressure [90-138/55-84 mm Hg] 138/85mm Hg (12/31/21 3:45 PM) 128/71mm Hg (12/31/21 6:20 AM) 139/95mm Hg *H* (12/31/21 5:00 AM) Respiratory Rate [16-30 br/min] 18 br/min (12/31/21 5:38 PM) 18 br/min (12/31/21 3:45 PM) 18 br/min (12/31/21 10:50 AM) Temperature [96.8-100.4 DegF] 98.4 DegF (12/31/21 3:45 PM) 98.5 DegF (12/31/21 6:20 AM) 98.2 DegF (12/31/21 5:00 AM) Liters per Minute 2 L/min (12/30/21 3:37 AM) 2 L/min (12/29/21 7:20 PM) 1 L/min (12/29/21 11:23 AM) Mode of Delivery (Oxygen) Room air (12/31/21 3:45 PM) Room air (12/31/21 6:20 AM) Room air (12/31/21 5:00 AM) Blood pressure sites Arm, left (12/31/21 3:45 PM) Arm, right (12/31/21 6:20 AM) Arm, right (12/31/21 5:00 AM) Temperature Route Oral (12/31/21 3:45 PM) Oral (12/31/21 6:20 AM) Oral (12/31/21 5:00 AM) Dry Weight 107.4 kg (12/28/21 7:42 PM) 107.4 kg (12/27/21 10:30 PM) 100 kg (12/27/21 10:21 PM) Weight Obtained Via Patient/family state d (12/27/21 4:31 PM) Dry Weight Obtained Via Patient/family s tated (12/27/21 4:31 PM)
--- OUTSIDE RECORDS SUMMARY | 2023-11-25 11:25 | XMS_ITS | Continuity of Care Document ---
Author Name Unknown Organization [facility] ter Address [address] [place] [id number]- Care Team Providers Care Manager Location Name Role Phone Vanessa Garcia MD Primary Care Physician [place] [facility] [place]/07[place] - 02/06/[address] [address]- Attending Physician: Not on Staff, Attending MD Admitting Physician: Not on Staff, Admitting MD Referring Physician: Not on Staff, Referring [...] 0 Refills, Maintenance, 01/07/22 11:56:00 EDT, Tablet, [facility]/pharmacy #[id number], Partial fill upon patient request [...] 0 Refills, Maintenance, 01/07/22 11:56:00 EDT, Capsule, [facility]/pharmacy #[id number], Partial fill upon patient request [...] 01/07/22 11:57:00 EDT, Route to Pharmacy Electronically, [facility]/pharmacy #[id number], Partial fill upon patient request [...] 01/07/22 11:58:00 EDT, Route to Pharmacy Electronically, [facility]/pharmacy #[id number], Partial fill upon patient request if the [...]
[2023-11-25] MEDS: Lactated Ringers 1,000 ML 999 ML IV ×2 (11:39)
--- NOTE | 2023-11-25 11:43 | PHA.MEDREC ---
Pharmacy Consult ? Medication Reconciliation rn has completed the medication reconciliation, pharmacy reviewed.
[2023-11-25] MEDS: Aprepitant 32 MG/4.4 ML VIAL IVPUSH (11:52)
--- NOTE | 2023-11-25 13:15 | P.CONAN_ITS ---
HPI - Anesthesia Eval Consult details Narrative: 68 yo female patient for EGD, Laparoscopic Sleeve gastrectomy, possible diaphragmatic hernia repair, possible ventral hernia repair, possible open Seen by Cardiology for abnormal EKG. Cardiac w/u negative. Cleared for surgery @ low risk [facility] Active Problems Active Problems: All Active Problems (Updated 11/25/23 @ 13:17 by Yoselyn Loomis MD) BMI 35.0-35.9,adult (Acute) BMI 34.0-34.9,adult (Acute) Obesity (Acute) Ascending aorta dilatation (Acute) 4.0cm Abnormal myocardial perfusion study (Acute) Preoperative cardiovascular examination (Acute)- cardiac w/u negative Adjustment disorder, unspecified (Acute) Obesity (BMI 30-39.9) (Acute) Abnormal EKG (Acute) Osteoarthritis (Acute) HTN (hypertension) (Acute) Hypercholesterolemia (Acute) Morbid obesity (Acute) GERD (gastroesophageal reflux disease) (Acute) Gout (Acute)- controlled on allopurinol b.i.d. Osteopenia (Acute) Past Medical History Medical History Arthritis Elevated cholesterol HTN (hypertension) GERD (gastroesophageal reflux disease) Gout Osteopenia Hx of cataract Hx of retinal detachment Family History Family History Father Heart murmur Heart valve replaced by transplant Brother Heart valve replaced by transplant H/O heart bypass surgery Family history of problems with anesthesia: No Surgical History Surgical History Hx of hernia repair History of repair of ACL History of lateral meniscus repair of left knee History of colon resection Hx of kidney donation History of Problems with Anesthesia: No Social History Social History Are you a primary lawn care worker to a significant other at home: No Do you presently have visiting nurse or other home services: No Alcohol intake: never Patient Tobacco Use Status: Former Tobacco user Years Smoked: quit 20 yrs ago Use of substances other than those prescribed or required for medical reasons: No Have you been hit, kicked, punched, or otherwise hurt by someone within the past year? If so, by whom?: No Advance Directives: No Advance Directives Information Provided: No Advance Directives on File: No Recently lost weight without trying: No Eating poorly because of decreased appetite: No Nutrition Risks: No Nutritional Risk Patient : No : No Poor oral hygiene: Yes (two front tooth crowns) Meds Allergies Allergy/AdvReac Type Severity Reaction Status Date / Time hydrocodone [From Vicodin] Allergy Severe Anaphylaxis Verified 11/25/23 12:12 Active Medications: Current Medications Lactated Ringer's (Lr) 1,000 mls @ 999 mls/hr IV .Q1H1M [place] Stop: 11/25/23 13:30 Last Admin: 11/25/23 11:39 Dose: 999 mls/hr Home Medications Medication Instructions Recorded Confirmed Last Taken Type allopurinol 100 mg tablet 100 mg PO BID 07/02/23 11/14/23 Unknown History amlodipine 2.5 mg tablet 2.5 mg PO DAILY 07/02/23 11/14/23 11/25/23 History cyclosporine 0.05 % eye drops in a 1 drp ophthalmic (eye) BID 07/02/23 11/14/23 Unknown History dropperette (Restasis) diphenhydramine HCl 25 mg tablet 25 mg PO BEDTIME PRN Allergic 07/02/23 11/14/23 Unknown History (Benadryl Allergy) Symptoms simvastatin 40 mg tablet 40 mg PO DAILY 07/02/23 11/14/23 Unknown History Exam Height,Weight and Vital Signs: Height 5 ft 2 in Weight 87.543 kg Last Vital Signs Temp 98.1 F 11/25/23 11:47 Pulse 100 11/25/23 11:47 Resp 18 11/25/23 11:47 BP 144/95 H 11/25/23 11:47 Pulse Ox 97 11/25/23 11:47 O2 Del Method Room Air 11/25/23 11:47 Pertinent Lab Results Pertinent Lab Results: Laboratory Tests 11/18/23 11/18/23 08:20 08:25 WBC 6.5 RBC 4.46 Hgb 15.9 Hct 46.1 MCV 103.4 H MCH 35.7 H MCHC 34.5 RDW 12.8 Plt Count 233 MPV 10.6 Immature Gran % (Auto) 0.3 Neut % (Auto) 65.8 Lymph % (Auto) 22.9 [place] % (Auto) 9.0 Eos % (Auto) 0.8 Baso % (Auto) 1.2 Lymph # (Auto) 1.5 [place] # (Auto) 0.6 Eos # (Auto) 0.1 Baso # (Auto) 0.1 Abs Immat Gran (auto) 0.02 Absolute Neuts (auto) 4.3 Absolute Nucleated RBC 0.000 Nucleated RBC % (auto) 0.0 PT 11.6 INR 1.0 APTT 28.1 Sodium 142 Potassium 4.5 Chloride 105 Carbon Dioxide 28 Anion Gap 14 BUN 25 H Creatinine 1.04 Estim Creat Clear Calc 52.4 Estimated GFR 53 Random Glucose 95 Estimat Average Glucose 94 Hemoglobin A1c % 4.9 Insulin Level 6 Calcium 9.6 Total Bilirubin 0.6 AST 27 ALT 26 Alkaline Phosphatase 77 C-Reactive Protein 0.43 Total Protein 7.7 Albumin 4.4 Triglycerides 136 Cholesterol 166 LDL Cholesterol, Calc 91 HDL Cholesterol 48 TSH 2.10 Blood Type O Negative Antibody Screen NEGATIVE Airway Mallampati Class: II TM Dist: >3cm Neck ROM: Full Loose/Missing/Broken Teeth: No (Denies broken, loose, missing teeth) Heart: RRR Lungs: CTAB Assessment and Plan Assessment Anesthesia Assessment: Anesthesia Plan Discussed and Chart Reviewed Final Anesthetic Review Family History of Problems with Anesthesia: No History of Problems with Anesthesia: No NPO: Yes ASA Class: III Final Preanesthetic Review: No Changes in Pt Med Stat, Meds/Allgs Chart Reviewed, Consent Obtained/Reviewed and Anes Risks/Benef Reviewed Patient Risk: Intermediate Procedure Risk: Intermediate Assessment/Block/Sedation in SS: Assess/Block/Sedation-SS Anesthetic Plan Anesthetic Plan: GA Disposition: Standard PACU and Inp. Admit - Standard Bed
--- NOTE | 2023-11-25 13:22 | PM.OP ---
Brief Operative Note Date of Service: 11/25/23 Pre-op diagnosis: Severe obesity with comorbidities (see below) Post-op diagnosis: same (& abdominal adhesions) Procedure: INITIAL PATIENT BMI ON PRESENTATION AT OUR OFFICE: 40.9 kg/m2 LAST BMI BEFORE SURGERY: 35.1 kg/m2 COMORBIDITIES: GERD, gout, hypertension, hyperlipidemia, DJD, liver steatosis, LVH ?The patient presented to the Weight Management Program with significant obesity that was negatively impacting the patient's comorbidities as listed above.? The program is a phased program with a special focus on preoperative medical weight management to promote substantial weight loss and prepare the patients for the second phase of the program: bariatric surgery. The patient participated in an intensive weekly lifestyle ?intervention and exercise program during which the patient ?has lost between the initial office visit and the last preoperative visit 39.2lbs, or 14.83% of initial actual body weight. It was deemed appropriate for the patient to now have bariatric surgery. In light of the current Covid-19 pandemic and the well documented strong association of obesity and increased risk of worse outcomes if infected with Covid-19 (REFERENCES:https://pubmed.ncbi.nlm.nih.gov/69547181/,?https://pubmed.ncbi.nlm.nih.gov/68377809/), any delay in undergoing bariatric surgery may lead to the patient's worsening health condition and increased?risk of more severe Covid-19 disease if infected. In addition a recent?study from [facility] published in [facility] on 10/22/2021 ([email or web address]) found that, among patients with obesity, substantial weight loss achieved with surgery was associated with improved outcomes of COVID-19 infection. The findings suggest that obesity can be a modifiable risk factor for the severity of COVID-19 infection. In addition, the patient met the BMI-criteria for bariatric surgery based on the BMI on initial presentation. The patient should not be penalized for achieving such weight loss because ?it is not sustainable long-term without surgical intervention and it was achieved in preparation for bariatric surgery ?under my direction and based on my published research ([email or web address]).[email or web address] and?https://www.soard.org/article/[email or web address])41530-X/pdf) ?that a 10% preoperative weight loss improves long-term weight loss after surgery and reduces perioperative complications.? Insurance carriers such as [employer] have endorsed my recommendations ?and have included in their policies criteria to include a 10% preoperative weight loss requirement. PROCEDURE: Esophago-gastroscopy, laparoscopic lysis of adhesions, laparoscopic sleeve gastrectomy and laparoscopic gastropexy INDICATIONS: This is a 68 year-old female who was electively scheduled for laparoscopic, possibly open sleeve gastrectomy. The risks and complications of the procedure were discussed with the patient in advance, particularly the possibility of ; pulmonary embolism; staple line leak; bleeding; GERD; cardiac, pulmonary, or renal complications; as well as long-term problems such as insufficient weight loss, vitamin deficiency, strictures, or ulcers. The patient understood all the risks, and was in agreement to proceed with surgery. DESCRIPTION OF PROCEDURE: After informed consent was obtained from the patient, the patient was given preoperative antibiotics, and was transferred to the operating room. After successful induction of general anesthesia, pneumatic compression devices were placed on both lower extremities. An upper endoscopy was performed next. The oropharynx and esophagus appeared to be within normal limits. There was no diaphragmatic hernia present. The stomach was entered. Then after all fluid and air were suctioned and the stomach was fully decompressed, the scope was withdrawn and secured in the mid esophagus. The patient was then prepped and draped in the usual sterile manner, and abdominal access was established at the right upper quadrant with the Stephanie technique. A 12 mm blunt port was inserted, and the abdomen was insufflated with CO2 to a pressure of 15 mmHg. Under direct visualization, additional ports were placed, specifically two 5 mm Versi-step ports to the left upper quadrant, and a 5 mm Versi-Step port to the right upper quadrant. 1% lidocaine plain was used to infiltrate all port sites as well as all fascia defects. There were extensive adhesions in the abdomen from previous colectomy, colostomy takedown and laparoscopic incisional ventral hernia repair with mesh involving the omentum and the anterior abdominal wall. Fortunately, with the exception of a few adhesions most of the adhesions did not have to be lysed. Following that, the patient was placed in a steep reverse Trendelenburg position. An additional 5 mm port was placed to the right flank for the Mediflex retractor that was used to retract the left lobe of the liver. The gastro-esophageal fat pad was opened with the ultrasonic device (Thunderbeat, Olympus) and the anterior esophagus and hiatus were exposed. The angle of His was opened with the ultrasonic device the fundus of the stomach from any diaphragmatic and splenic attachments. I then opened the gastrocolic ligament between the transverse colon and the greater curvature of the stomach with the ultrasonic device to enter the lesser sac and facilitate the ligation of the short gastric vessels. I started at a mid-point along the greater curvature and using the Thunderbeat, all short gastric vessels were divided all the way to the angle of His until the left mikey was completely dissected at its entirety. I then divided the gastro-colic ligament distally to a distance of about 3-4 cm proximal to the pylorus. 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 However there was no true defect and on endoscopy the GE junction was at least 3cm within the abdomen. The stomach was then divided transversely with two Endo BLADIMIR-45 purple and four BLADIMIR-60 articulating purple loads using the Apiary stapler and loads. Every effort was made that the gastric sleeve had a tubular shape and an even caliber throughout. Once the sleeve resection was completed, the staple line of the gastric sleeve was reinforced with Hemoclips. The resected stomach was retrieved without difficulty from the Stephanie port. A gastropexy was then performed in order to prevent postoperative GERD and partial gastric volvulus. Several interrupted 2.0 Surgidac sutures were placed between the sleeve's staple line and the previously divided greater omentum and gastro-colic ligament using the Endo-Stitch device. ?An upper endoscopy was performed. There was no narrowing at the GE junction. The scope was easily advanced all the way to the pylorus which was clearly visualized. There was no narrowing anywhere and the sleeve's caliber was even throughout. The sleeve's staple line was inspected and there was no evidence of ischemia, bleeding or dehiscence. At that point the gastroscope was withdrawn from the patient?s mouth while we were decompressing the bowel and the stomach from any remaining air. I looked into the lesser sac to see how the sleeve was situating and it was situating well. There was no bleeding from the staple line, spleen, or short gastric vessels. The Mediflex retractor was removed, and the undersurface of the liver was inspected and there was no bleeding. The patient was placed in supine position. I closed the fascial defect of the 12 mm port site with a figure of eight #1 Polysorb suture. Then 30cc Ropivacaine plain with 10 mg of Dexamethasone were used to infiltrate the fascial closure as well as all skin incisions. At this point, the abdomen was deflated, all ports were removed under direct vision, and no bleeding was noted from any of the port sites. The skin incisions were irrigated with saline and were closed with 4-0 absorbable monofilament sutures. Steri-Strips and OpSites were used to cover all incisions. The patient was extubated and was transferred in stable condition to the recovery room for further care. I was present and performed all mallory parts of the procedure. Ms. Winston was the assistant construction superintendent. There were no residents to assist with this case. Hamilton Virgen MD, PhD, FACS Surgeon: Denver Virgen MD Anesthesia: GETA, local and other (TAP block) Was an Fund Development Manager used for this Procedure?: No Fund Development Manager: Maddie Winston Estimated blood loss (mL): 0 IV fluids (mL): 2,600 Urine output (mL): 0 (No Garcia to record output) Pathology: other (Stomach) Condition: stable Disposition: PACU
--- NOTE | 2023-11-25 13:24 | P.DS_ITS ---
DS: Providers Provider Date of Service: 11/26/23 Date of admission: 11/25/23 11:23 Primary care physician: Annalee Damon MD DS: Summary Hospital Course Hospital Course: ADMITTING DIAGNOSIS: morbid obesity, HJTN, Gout, retinal detachment DISCHARGE DIAGNOSIS: same, s/p laparoscopic sleeve gastrectomy PAST SURGICAL HISTORY: colon rescection with colostomy, reversal of colostomy, nephrectomy, hernia repair, L knee surgery PROCEDURE: upper endoscopy, laparoscopic sleeve gastrectomy DISCHARGE SUMMARY: History of Present Illness: The patient is a 68 year-old woman with a BMI of 41.1 kg/m2 and associated co- morbidities as described above. The patient had extensive work-up, lost 30 lbs preoperatively and was electively scheduled for laparoscopic, possible open sleeve gastrectomy and gastropexy. Risks and complications of the surgery were discussed with the patient in advance, particularly the possibility of , pulmonary embolism, anastomotic leak, bleeding, bowel injury, GERD, cardiac, renal or pulmonary complications. The patient understood all the risks and was in agreement with the surgical plan. Hospital Course: The patient underwent an uneventful laparoscopic sleeve gastrectomy with gastropexy on the day of admission. Postoperatively, the patient was transferred to the surgical floor. The patient received IV Acetaminophen and IV dilaudid for pain control. Patient was started on bariatric phase 1 diet POD #0. On postoperative day one, the patient was feeling well without nausea, vomiting, fevers, or tachycardia. The patient had some mild incisional pain and the abdomen was soft. On the morning of postoperative day one, the patient was continued on 1 ounce of water or ice every half hour. During the day, the patient did fairly well, having some incisional pain, but able to ambulate adequately and to tolerate liquids well. Since the patient is doing well, we decided that the patient was ready to be discharged. The patient was given instructions to follow-up with me next week and to call my office for any fever over 101, persistent abdominal pain, nausea, vomiting, GERD, symptoms of DVT such as calf tenderness, or leg swelling, or pulmonary embolism such as chest pain or shortness of breath. The patient was also instructed to drink 40-60 ounces of liquids per day using the 1-ounce cups. The patient had been given prescriptions for Tylenol for pain, Zofran prn for nausea, and pantoprazole and carafate previously. The patient was encouraged to ambulate and use the incentive spirometer. The patient was allowed to shower, but no baths, and encouraged to stay active at home. All of these instructions were given to the patient personally. All questions were answered and the patient understood all instructions, the instructions were also given to the patient in print. Time Attestation Discharge coordination time: Less than 30 minutes Quality: Safe Use of Opioids Does Pt have an Active Cancer Diagnosis on the Problem List?: No Quality: Stroke Does the patient have a stroke diagnosis?: No Physical Exam Vital Signs: Vital Signs: Last Vital Signs Temp 98.1 F 11/25/23 11:47 Pulse 100 11/25/23 11:47 Resp 18 11/25/23 11:47 BP 144/95 H 11/25/23 11:47 Pulse Ox 97 11/25/23 11:47 O2 Del Method Room Air 11/25/23 11:47 BMI result Body Mass Index 35.3 Discharge Plan Discharge Anticipated Discharge Date/Time: 11/26/23 10:21 Patient Disposition: Home, Self-Care Discharge Diagnosis: s/p sleeve gastrectomy Referrals: Annalee Damon MD [Primary Care Provider] - 1 Week Discharge Medications: Continued pantoprazole 40 mg tablet,delayed release (DR/EC) 40 mg PO DAILY Qty: 90 0RF sucralfate 100 mg/mL suspension 10 ml PO BID Qty: 600 2RF ondansetron 4 mg tablet,disintegrating 4 mg PO Q12H Qty: 20 0RF Rx Instructions: Only take one every 12 hours as needed if you have nausea cyclosporine [Restasis] 0.05 % dropperette 1 drp ophthalmic (eye) BID diphenhydramine HCl [Benadryl Allergy] 25 mg tablet 25 mg PO BEDTIME PRN (Reason: Allergic Symptoms) Held allopurinol 100 mg tablet 100 mg PO BID Hold Instructions: as needed simvastatin 40 mg tablet 40 mg PO DAILY Hold Instructions: Discuss with Dr Virgen amlodipine 2.5 mg tablet 2.5 mg PO DAILY Hold Instructions: Discuss with Dr Virgen Discontinued polyethylene glycol 3350 [Miralax] 17 gram powder in packet 17 g PO DAILY Qty: 14 0RF Rx Instructions: Mix each packet with 8oz of water, Crystal light, or Gatorade zero, or Propel and do 7 packets on 11/23/23 and another 7 packets on 11/24/23 Discharge Orders: Discharge Order (Routine); Ordered 11/26/23 Ordered By: Denver Virgen Activity on Discharge: No heavy lifting Stand Alone Forms: Patient Portal Discharge page Care Plan Goals: weight loss Health Concerns: morbid obesity Plan of Treatment: No tub baths, sex or returning to work until discussed at first post op appointment. No exercise, alcohol, tobacco or illegal drug use. Continue to use incentive spirometer hourly while awake. Walk in home for 5- 10 minutes every 2 hours during the first week. Continue phase 1 diet today and start phase 2 diet tomorrow morning. Follow all instructions in the bariatric handbook and call with any questions. 1. Please call your doctor or come back to the emergency room should any new symptoms arise. 2. You will receive a courtesy call from [facility] 24-48 hours after discharge. 3. Activity: abstain from alcohol, practice limited stair climbing, no bending, no driving, no exercise, no illicit substances, no lifting, no sex, no tub bath, no work. 4. Diet: continue as discussed with bariatric team.. 5. Dressing Change/Wound Care: Do not change or remove surgical dressings unless they are wet or soiled. 6. Call your doctor if: - Your temperature exceeds 101.5 F - You experience excessive pain or swelling - You have an unexpected reaction to medication - You have excessive bleeding - You experience continued vomiting/nausea - Your incision begins to separate - Your incision shows signs of infection such as increased redness, swelling, excessive pain, heat, or drainage (light blood or clear fluid is normal) 7. General instructions: No lifting greater than 5 lbs for 1 week and not more than 20lbs the next 3?weeks. No driving until seen at the office in 5-7 days after surgery. If you do not move your bowels in the next 2 days, please tell?Dr. Virgen. Please walk around your home every hour or two to prevent blood clots from forming in your legs. You do not need to wake from sleeping to walk. Please sleep in a bed or couch to prevent kinking at the hips and knees. Please take your incentive spirometer (your lung protective services officer) home with you and use it for the next few days to prevent pneumonia. You may shower, no hot tubs, baths or swimming pools.?Please follow the post op diet instructions you are?given by Dr Roney gutierrez? and text me daily at 5-6pm for an update.?If you have any issues or concerns or questions please communicate this to him via text.? The Celebrate shakes have all of the bariatric vitamins you need if you consume these shakes. If you are drinking other protein shakes, you will need to purchase the Celebrate multivitamins and calcium that are available in the hospital gift shop on the first floor of the [facility].??Do not take anything without first discussing with Dr Virgen. Please make sure you are consuming at least 40 ounces of fluids per day starting the?day AFTER your discharge from the hospital. Always drink 1-2 ml per minute using the 5ml?syringe. If you drink faster you may experience?bloating,?gas pain, burping, nausea or heartburn. In that case please slow down your pace and use the syringe to?understand better the?proper?pace and volume of drinking. Do not hesitate to contact the office with any questions at . The patient's medical history has been reviewed and they are considered low risk for post op DVT and therefore DVT prophylaxis is not considered necessary. Travel after surgery was reviewed. The patient has not disclosed any travel plans during the first 30 days after surgery and they have been advised that within the first 30 days after surgery any bus, plane, train or car travel over 2 hours in duration is contraindicated due to the possibility of developing blood clots from immobility. Any travel, needs to include periods of ambulation of 10 minutes in duration every 2 hours. The patient was instructed to discuss any plans for travel during this period with their bariatric surgeon. Assessment: stable, post op sleeve gastrectomy Discharge Date/Time: 11/26/23 10:18
--- NOTE | 2023-11-25 13:25 | P.PNGS_ITS ---
Subjective Subjective Date of Service: 11/26/23 Interval history: Feels well. Mild incisional pain. She is tolerating phase 1 bariatric diet Physical Exam 2 Vital Signs: Vital Signs: Last Vital Signs Temp 98.1 F 11/25/23 11:47 Pulse 100 11/25/23 11:47 Resp 18 11/25/23 11:47 BP 144/95 H 11/25/23 11:47 Pulse Ox 97 11/25/23 11:47 O2 Del Method Room Air 11/25/23 11:47 BMI result Body Mass Index 35.3 GI: Inspection: Yes normal to inspection, Yes incision (clean, dry and intact) and Yes obesity Palpation (GI): Soft to palpation Extrem: Right lower extremity: normal to inspection (no calf tenderness) L eft lower extremity: normal to inspection (no calf tenderness) Objective Data Active Medications Lactated Ringer's (Lr) 1,000 mls @ 999 mls/hr IV .Q1H1M [place] Stop: 11/25/23 13:30 Last Admin: 11/25/23 11:39 Dose: 999 mls/hr Documented By: KEESHA Labs 11/26/23 05:55 11/26/23 05:55 Procedures Date of Service Date of Service: 11/26/23 Progress Note: A&P Assessment and plan (1) Obesity: Status: Acute Assessment and Plan: s/p laparoscopic sleeve gastrectomy and gastropexy Doing well Will check am labs and if OK the patient will be discharged home (2) BMI 35.0-35.9,adult: Status: Acute (3) HTN (hypertension): Status: Acute (4) Hypercholesterolemia: Status: Acute (5) GERD (gastroesophageal reflux disease): Status: Acute (6) Osteopenia: Status: Acute (7) Gout: Status: Acute (8) Osteoarthritis: Status: Acute (9) Steatosis, liver: Status: Acute (10) LVH (left ventricular hypertrophy): Status: Acute (11) S/P laparoscopic sleeve gastrectomy: Status: Acute (12) Intra-abdominal adhesions: Status: Acute Time Spent With Patient Time: Total time managing care of this patient today ____ minutes. Quality Stroke Does the patient have a stroke diagnosis?: No VTE Prior VTE?: No VTE Risk Level:: Surgical - moderate VTE Device Contraindication: N/A - Device Ordered VTE Drug Contraindication: Treatment Not Indicated
--- NOTE | 2023-11-25 13:35 | MHC.SHP ---
Pre-Procedural Eval Section A - 24 Hr Update-Section A only Date of Service: 11/25/23 The patient is an INPATIENT: Yes The patient has been examined within 24 hours of the surgical procedure. The History & Physical has been completed within 30 days and I have reviewed it.: Yes Section B - Complete if H&P > 30 days Chief Complaint: Obesity, unspecified Relevant Family History (Specify if Yes): No Relevant Social History: None Present Medications: None Medical History: No relevant PMH History of Previous Operations: No relevant previous surgery Allergies: Allergies Allergy/AdvReac Type Severity Reaction Status Date / Time hydrocodone [From Vicodin] Allergy Severe Anaphylaxis Verified 11/25/23 12:12 Review of Systems Sugical H&P ROS: Negative: Constitution, Cardiovascular, Respiratory, Neurological, Psychiatric, Hem-Onc, Allergic/Immunologic, Gastrointestinal, Genitourinary, Musculoskeletal, Integumentary, Endocrine and Eyes/Ears/Nose/Throat Exam Surgical H&P Exam: Normal: HEENT, Normal: Heart, Normal: Lungs, Normal: Extremities, Normal: Abdomen, Normal: Skin and Normal: Neurological Plan Diagnosis/Plan: Unchanged I have reviewed the history and physical and performed a pertinent physical examination on my patient. No changes have occurred unless specified. Time Spent With Patient Time: Total time managing care of this patient today ____ minutes.
[2023-11-25 16:38] LABS: Hematocrit 38.4 % (37.0-47.0); Hemoglobin 13.5 g/dl (12.0-16.0)
[2023-11-25 16:48] LABS: Anion Gap 20 (12-20); Blood Urea Nitrogen 17 mg/dL (9-16); Calcium 9.4 mg/dL (8.4-10.2); Carbon Dioxide 20 mmol/L (22-29); Chloride 104 mmol/L (96-108); Creatinine Clr Calc Pharmacy 55.1; Estimated Glomerular Filt Rate 56; Glucose Random 106 mg/dL (60-115); Potassium 4.4 mmol/L (3.3-5.1); Sodium 140 mmol/L (135-145)
[2023-11-25] MEDS: 0.9 % Sodium Chloride Flush 3 ML SYRINGE IVFLUSH ×2 (17:50→20:32)
[2023-11-25] MEDS: Lactated Ringers 1,000 ML 100 ML IVCONT (17:50)
[2023-11-25] MEDS: ceFAZolin Sodium/Dextrose,Iso 2 GM/50 ML PIGGYBACK IV (18:27)
[2023-11-25] MEDS: Acetaminophen 1,000 MG/100 ML PIGGYBACK 16.7 MG IV (20:32)
[2023-11-25] MEDS: Famotidine/PF 20 MG/2 ML VIAL IVPUSH (20:32)
[2023-11-26] MEDS: diphenhydrAMINE HCL 25 MG CAPSULE PO (00:46)
[2023-11-26] MEDS: Lactated Ringers 1,000 ML 100 ML IVCONT (02:06)
[2023-11-26] MEDS: Acetaminophen 1,000 MG/100 ML PIGGYBACK 16.7 MG IV ×2 (02:07→07:33)
[2023-11-26 03:25] VITALS: BP 130/75; PULSE 84; RESP 18; TEMP 36.6; O2SAT 96
[2023-11-26 06:06] LABS: MANUAL DIFF FLAG NO
[2023-11-26 06:08] LABS: Basophils Percent Auto 0.1 % (0-2); Hematocrit 38.3 % (37.0-47.0); Hemoglobin 13.4 g/dl (12.0-16.0); Imm Gran Abs Auto 0.02 X10*3/uL (0.00-0.03); Imm Gran Pct Auto 0.2 % (0.0-0.4); Lymphocytes Absolute Auto 0.9 X10*3/uL (1.2-4.9); Lymphocytes Percent Auto 10.6 % (20-40); Mean Corpuscular Hemoglobin 35.4 pg (27.0-33.0); Mean Corpuscular Volume 101.1 fL (80.0-98.0); Mean Platelet Volume 10.4 fL (9.4-12.3); Monocytes Absolute Auto 0.3 X10*3/uL (0.1-1.2); Monocytes Percent Auto 3.8 % (2-11); Neutrophils Absolute Auto 7.2 x10*3/uL (2.0-8.3); Neutrophils Percent Auto 85.3 % (45-73); Platelet Count 204 X10*3/uL (160-400); Red Blood Count 3.79 X10*6/uL (4.20-5.50); Red Cell Distribution Width 12.8 % (11.0-16.0); White Blood Count 8.4 X10*3/uL (4.8-10.8)
[2023-11-26 06:53] LABS: Anion Gap 18 (12-20); Blood Urea Nitrogen 16 mg/dL (9-16); Carbon Dioxide 20 mmol/L (22-29); Chloride 104 mmol/L (96-108); Creatinine Clr Calc Pharmacy 65.8; Estimated Glomerular Filt Rate > 60; Glucose Random 129 mg/dL (60-115); Potassium 4.4 mmol/L (3.3-5.1); Sodium 138 mmol/L (135-145)
[2023-11-26 07:21] VITALS: BP 130/87; PULSE 80; RESP 16; TEMP 36.3; O2SAT 97
[2023-11-26] MEDS: Famotidine/PF 20 MG/2 ML VIAL IVPUSH (07:33)
--- NOTE | 2023-11-26 12:22 | MHC.CM.PN ---
PT DCD HOME NO SKILLED SERVIES ORDERD BY
--- NOTE | 2023-11-26 14:30 | HO.POSTANES ---
Post Anesthesia Evaluation Post Anesthesia Evaluation Date of Service: 11/26/23 Vital Signs: Vital Signs Temp Pulse Resp BP Pulse Ox O2 Del Method 11/26/23 07:21 97.4 F 80 16 130/87 97 Room Air 11/26/23 03:25 98 F 84 18 130/75 96 Room Air Anesthesia: General Endotracheal-GETA Mental Status: Awake Pain Control: Satisfactory Nausea/Vomiting: None Hydration: Adequate Anesthesia-Related Issues: No Anes. Related Issues
== END 2023-11-26 10:18 | disposition home or self-care (01) | DRG 621 ==
LOC: HO.SSSA 13:21 → HO.S3 16:22
PROVIDERS: Physician Assistant; Admitting Provider Surgery; PCP Family Medicine; Visit Provider Surgery
PROC: 0DB64Z3 Excision of Stomach, Percutaneous Endoscopic Approach, Vertical (ICD-10-PCS; CPT 43845; principal; 2023-11-25 12:50)
DX: E66.01 Morbid (severe) obesity due to excess calories (principal); K21.9 Gastro-esophageal reflux disease without esophagitis; K66.0 Peritoneal adhesions (postprocedural) (postinfection); E78.00 Pure hypercholesterolemia, unspecified; M19.90 Unspecified osteoarthritis, unspecified site; K76.0 Fatty (change of) liver, not elsewhere classified; I11.9 Hypertensive heart disease without heart failure; Z68.35 Body mass index [BMI] 35.0-35.9, adult; Z87.891 Personal history of nicotine dependence; Z79.899 Other long term (current) drug therapy
CPT/HCPCS: 36415; 80048; 80053; 80061; 83036; 83525; 84443; 85014; 85018; 85025; 85610; 85730; 86140; 86850; 86900; 86901; 88304; 88305; 88307; 88342; 99024; A4649; C9145; J0131; J0690; J1100; J1170; J2250; J2371; J2405; J2704; J2795; J3010; J7120

== ENCOUNTER → 2023-11-25 11:23 | Outpatient (BNV) | payer MEDICARE, SELFPAY | PROVIDERS: Admitting Provider Surgery; PCP Family Medicine; Visit Provider Surgery | DX: E66.9 Obesity, unspecified (principal); Z68.35 Body mass index [BMI] 35.0-35.9, adult; K66.0 Peritoneal adhesions (postprocedural) (postinfection) | CPT/HCPCS: 43659; 43775; 99024 ==

== ENCOUNTER 2023-12-02 10:32 | Outpatient (AMB) | payer MEDICARE, SELFPAY ==
--- NOTE | 2023-12-02 11:11 | MHC.OFFVISWM ---
Intake VS Expanded 12/02/23 11:24 BP 140/92 H Blood Pressure Location Rt brachial Blood Pressure Position Sitting Pulse 94 Pulse Source Pulse Oximeter Temp 96.0 F L Temperature Source Tympanic Pulse Oximetry 98 Oxygen Delivery Method Room Air Height 5 ft 2 in Weight 182 lb 6.4 oz BMI 33.4 Body Fat % 41.0 Body Fat Mass 74.8 Fat Free Mass 107.6 Visceral Fat Rating 12.0 Body Water % 41.6 Body Water Mass 75.8 Muscle Mass/Score 120.0 Basal Metabolic Rate/Score 1,476 Intake Visit Reasons: (OV) PO LSG 11/25/23 Allergies fuentes 2 inhibitor Adverse Reaction (Severe, Uncoded 12/02/23 11:29) acute kidney failure HPI HPI Comments History of Present Illness Details The patient is very pleasant 68-year-old female returns to the office today in follow-up. She is 7 days post sleeve gastrectomy performed on 11/25/2023. She is tolerating 3 celebrate foreign 1 shakes with 1 scoop each and 40-50 oz of fluids. She has not yet moved her bowels although denies any significant abdominal pain, nausea, vomiting. [facility] Medical History (Updated 11/25/23 @ 20:33 by Denver Virgen MD) Arthritis Elevated cholesterol HTN (hypertension) GERD (gastroesophageal reflux disease) Gout Osteopenia Hx of cataract Hx of retinal detachment Surgical History (Updated 12/02/23 @ 11:13 by Adri Crawley CMA) Hx of laparoscopic partial gastrectomy Hx of hernia repair History of repair of ACL History of lateral meniscus repair of left knee History of colon resection Hx of kidney donation Family History Father Heart murmur Heart valve replaced by transplant Brother Heart valve replaced by transplant H/O heart bypass surgery Social History Household Members: Family Housing: House Are you a primary career center director to a significant other at home: No Do you presently have visiting nurse or other home services: No Alcohol intake: never Patient Tobacco Use Status: Former Tobacco user Years Smoked: quit 20 yrs ago Physical Exam Vital Signs: Last Vital Signs Temp 96.0 F L 12/02/23 11:24 Pulse 94 02/06/24 11:24 BP 140/92 H 12/02/23 11:24 Pulse Ox 98 12/02/23 11:24 Oxygen Delivery Method Room Air 12/02/23 11:24 BMI result Body Mass Index 33.4 GI Inspection: Yes incision (Clean, dry, intact.) Assessment & Plan Assessment & Plan (1) S/P laparoscopic sleeve gastrectomy: Code(s): Z98.84 - Bariatric surgery status Plan: POD 7 s/p LSG on 11/25/[address] Virgen Weight loss prior to surgery was 32.5 pounds or 14.4 % TBWL. Original weight on 07/02/2023 was 225 pounds and op weight was 192.5 pounds. Be sure to text Dr Virgen exactly 1 week after surgery your weight from your home scale so he can adjust your meal plan. Continue meal plan until f/u anabel Everett in 2 weeks May shower, no submersion in bath for another week Continue abdominal binder with activity and exercise for the next 2 weeks. Exercise prior to surgery was recumbent bike, may resume No abdominal exercises for 6 weeks post operatively Will be emailed link to post op video for review Reminded of the pace of drinking, 2 mL per minute, 1 oz/15 min. (2) HTN (hypertension): Code(s): I10 - Essential (primary) hypertension Plan: Taking half dose of her amlodipine as instructed by Dr. Virgen Medications: New docusate sodium (Colace) 100 mg PO BID 180 caps 0RF 90 days Coding Level of Care Code Global (27371) Diagnoses S/P laparoscopic sleeve gastrectomy Z98.84 HTN (hypertension) I10
[2023-12-02 11:24] VITALS: BP 140/92; PULSE 94; TEMP 35.6; O2SAT 98; BMI 33.4
== END 2023-12-02 11:52 | disposition home or self-care (01) ==
PROVIDERS: PCP Family Medicine; Visit Provider Physician Assistant Surgical
DX: E66.9 Obesity, unspecified (principal); Z68.33 Body mass index [BMI] 33.0-33.9, adult; Z90.3 Acquired absence of stomach [part of]; Z98.84 Bariatric surgery status
CPT/HCPCS: 99024

== ENCOUNTER → 2023-12-02 10:32 | Outpatient (BNVA) | payer MEDICARE, SELFPAY | PROVIDERS: PCP Family Medicine; Visit Provider Physician Assistant Surgical | DX: I10 Essential (primary) hypertension (principal); Z98.84 Bariatric surgery status | CPT/HCPCS: 99212 ==

== ENCOUNTER 2023-12-16 10:57 | Outpatient (AMB) | payer MEDICARE, SELFPAY ==
--- NOTE | 2023-12-16 09:01 | A.OFFVIS_ITS ---
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 Presents for 3 weeks post op visit. Weight today is 176.4 pounds, with a BMI of 32.3. There has been a 48.6 pound weight loss,(initial weight 225 pounds) since starting the program on 07/02/2023 reflecting a 21.6 % total body weight loss and a weight loss of 16.1 pounds since surgery (operative weight 192.5 pounds) reflecting a 8.3 % TBWL since surgery. No complaints of nausea, emesis, abdominal pain or reflux. Reports infrequent but normal bowel movements every 2 days and uses stool softeners regularly. No longer needing Norvasc. She does not want to do the fit crunch bars anymore but is willing to stick with the current plan with an alternative bar. Present meal plan includes: Celebrate 4 in 1, 1 scoop, 1 scoop, 2 scoops. 8-10, 11-1, 2-4 fit crunch bar 5-8 40-50 oz water as well ? Exercise routine includes: Recumbent bike 35 minutes per day, and walking daily. 300-400 calories daily REPLACED BY [facility] Medical History Arthritis Elevated cholesterol HTN (hypertension) GERD (gastroesophageal reflux disease) Gout Osteopenia Hx of cataract Hx of retinal detachment Surgical History Hx of laparoscopic partial gastrectomy Hx of hernia repair History of repair of ACL History of lateral meniscus repair of left knee History of colon resection Hx of kidney donation Family History Father Heart murmur Heart valve replaced by transplant Brother Heart valve replaced by transplant H/O heart bypass surgery Social History Household Members: Family Housing: House Are you a primary emergency care tech to a significant other at home: No Do you presently have visiting nurse or other home services: No Alcohol intake: never Patient Tobacco Use Status: Former Tobacco user Years Smoked: quit 20 yrs ago Assessment & Plan Assessment & Plan (1) S/P laparoscopic sleeve gastrectomy: Code(s): Z98.84 - Bariatric surgery status Plan: Patient will continue her current meal plan She does wish to change the bar and was offered both zone perfect and fulfill. She will return to the office in approximately 3 weeks. Telehealth Telehealth Location of provider rendering services: practice address Location of patient: address on file Patient Identification confirmed using: Name, : Yes Telehealth method: voice only Patient verbally consented to treatment: Yes Patient verbally consented to billing insurance company: Yes Patient informed of any privacy concerns related to visit: Yes Minutes spent on Phone/Video with Pt.: 12 Coding Level of Care Code Global (04547) Diagnoses S/P laparoscopic sleeve gastrectomy Z98.84
[2023-12-16 09:02] VITALS: BMI 32.3
== END 2023-12-16 11:08 | disposition home or self-care (01) ==
LOC: HO.HBS 10:57
PROVIDERS: PCP Family Medicine; Visit Provider Physician Assistant Surgical
DX: E66.9 Obesity, unspecified (principal); Z68.32 Body mass index [BMI] 32.0-32.9, adult; Z90.3 Acquired absence of stomach [part of]; Z98.84 Bariatric surgery status
CPT/HCPCS: 99024

== ENCOUNTER → 2023-12-16 10:57 | Outpatient (BNVA) | payer MEDICARE, SELFPAY | PROVIDERS: PCP Family Medicine; Visit Provider Physician Assistant Surgical | DX: Z48.815 Encounter for surgical aftercare following surgery on the digestive system (principal); Z98.84 Bariatric surgery status | CPT/HCPCS: 99212 ==

== ENCOUNTER 2024-01-07 09:37 | Outpatient (AMB) | payer MEDICARE, SELFPAY ==
[2024-01-07 07:44] VITALS: BMI 30.5
--- NOTE | 2024-01-07 07:44 | MHC.OFFVISWM ---
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 Presents for 6 weeks post op visit. Weight today is 167 pounds, with a BMI of 30.5. There has been a 58 pound weight loss,(initial weight 225 pounds) since starting the program on 07/02/2023 reflecting a 25.7 % total body weight loss and a weight loss of 25.5 pounds since surgery (operative weight 192.5 pounds) reflecting a 13.2 % TBWL since surgery. No complaints of nausea, emesis, abdominal pain or reflux. Reports infrequent but normal bowel movements every 2 days and uses stool softeners regularly. No longer needing Norvasc. She does want some food and discussed w Dr Sim, Present meal plan includes: Celebrate 4 in 1, 1/2 scoop in 8 oz 7-9 am same 10-12 pm bar ZP, fit crunch or fulfill 1-3pm celebrate 1 scoop 4-6 pm meal 7 pm 4 forks protein , 4 forks cooked veg. shake 1/2 scoop 8-10 pm 50 oz water as well ? Exercise routine includes: Recumbent bike 40 minutes per day, and walking daily. 350-400 calories daily [facility] Medical History Arthritis Elevated cholesterol HTN (hypertension) GERD (gastroesophageal reflux disease) Gout Osteopenia Hx of cataract Hx of retinal detachment Surgical History Hx of laparoscopic partial gastrectomy Hx of hernia repair History of repair of ACL History of lateral meniscus repair of left knee History of colon resection Hx of kidney donation Family History Father Heart murmur Heart valve replaced by transplant Brother Heart valve replaced by transplant H/O heart bypass surgery Social History Household Members: Family Housing: House Are you a primary managed care nurse to a significant other at home: No Do you presently have visiting nurse or other home services: No Alcohol intake: never Patient Tobacco Use Status: Former Tobacco user Years Smoked: quit 20 yrs ago Assessment & Plan Assessment & Plan (1) S/P laparoscopic sleeve gastrectomy: Code(s): Z98.84 - Bariatric surgery status Plan: Patient was given a new meal plan by Dr. Virgen. I did give her the suggestion to start with a white flushed fish, dark meat chicken, white meat chicken, pork loin, salmon, beef, in that order for protein. She will additionally use cooked well vegetables. She asked about swimming and was told that she can do this activity. She will continue with her current plan and return to the office in a couple of weeks, texting with any questions or concerns. She was additionally advised to take a bariatric multivitamin. While she is doing celebrate 4 in 1, she asked about another shake option and I suggested she have her last half scoop shake using celebrate rebuild. Telehealth Telehealth Location of provider rendering services: practice address Location of patient: address on file Patient Identification confirmed using: Name, : Yes Telehealth method: voice only Patient verbally consented to treatment: Yes Patient verbally consented to billing insurance company: Yes Patient informed of any privacy concerns related to visit: Yes Minutes spent on Phone/Video with Pt.: 15 Coding Level of Care Code Global (17900) Diagnoses S/P laparoscopic sleeve gastrectomy Z98.84
== END 2024-01-07 09:53 | disposition home or self-care (01) ==
LOC: HO.HBS 09:37
PROVIDERS: PCP Family Medicine; Visit Provider Physician Assistant Surgical
DX: E66.9 Obesity, unspecified (principal); Z68.30 Body mass index [BMI] 30.0-30.9, adult; Z90.3 Acquired absence of stomach [part of]; Z98.84 Bariatric surgery status
CPT/HCPCS: 99024

== ENCOUNTER → 2024-01-07 09:37 | Outpatient (BNVA) | payer MEDICARE, SELFPAY | PROVIDERS: PCP Family Medicine; Visit Provider Physician Assistant Surgical | DX: Z98.84 Bariatric surgery status (principal) | CPT/HCPCS: 99212 ==

== ENCOUNTER 2024-01-26 09:30 | Outpatient (AMB) | payer MEDICARE, SELFPAY ==
--- NOTE | 2024-01-26 08:02 | MHC.OFFVISWM ---
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 Presents for 2 month post op visit. Weight today is 162.4 pounds, with a BMI of 29.4. There has been a 62.6 pound weight loss,(initial weight 225 pounds) since starting the program on 07/02/2023 reflecting a 27.8 % total body weight loss and a weight loss of 30.1 pounds since surgery (operative weight 192.5 pounds) reflecting a 15.6 % TBWL since surgery. No complaints of nausea, emesis, abdominal pain or reflux. Reports infrequent but normal bowel movements every 2 days and uses stool softeners regularly. taking celebrate MVI, No longer needing Norvasc. She wants to revise meal plan to be more concise. Present meal plan includes: Celebrate 4 in 1, 1/2 scoop in 8 oz 7-9 am same 10-12 pm bar ZP, fit crunch or fulfill 1-3pm celebrate 1 scoop 4-6 pm meal 7 pm 4 forks protein , 4 forks cooked veg. shake 1/2 scoop celebrate rebuild 8-10 pm 50-60 oz water as well? Exercise routine includes: Recumbent bike 40 minutes per day. 300-350 calories daily PFSH Medical History Arthritis Elevated cholesterol HTN (hypertension) GERD (gastroesophageal reflux disease) Gout Osteopenia Hx of cataract Hx of retinal detachment Surgical History Hx of laparoscopic partial gastrectomy Hx of hernia repair History of repair of ACL History of lateral meniscus repair of left knee History of colon resection Hx of kidney donation Family History Father Heart murmur Heart valve replaced by transplant Brother Heart valve replaced by transplant H/O heart bypass surgery Social History Household Members: Family Housing: House Are you a primary tree care foreman to a significant other at home: No Do you presently have visiting nurse or other home services: No Alcohol intake: never Patient Tobacco Use Status: Former Tobacco user Years Smoked: quit 20 yrs ago Review of Systems Const All systems reviewed & are unremarkable except as noted in HPI and below Assessment & Plan Assessment & Plan (1) S/P laparoscopic sleeve gastrectomy: Code(s): Z98.84 - Bariatric surgery status Plan: Wants to compress meal plan Celebrate rebuild 2 scoops in 12 oz almond milk 7-10 am protein bar (ZP, Fulfill) 12-2 pm meal 6 pm 6 forks protein and 6 forks cooked veg. continue exercise add weight training before cardio rtc 1 month Telehealth Telehealth Location of provider rendering services: practice address Location of patient: address on file Patient Identification confirmed using: Name, : Yes Telehealth method: voice only Patient verbally consented to treatment: Yes Patient verbally consented to billing insurance company: Yes Patient informed of any privacy concerns related to visit: Yes Minutes spent on Phone/Video with Pt.: 15 Coding Level of Care Code Global (19913) Diagnoses S/P laparoscopic sleeve gastrectomy Z98.84 Time Spent (min) 20
[2024-01-26 08:04] VITALS: BMI 29.7
== END 2024-01-26 09:39 | disposition home or self-care (01) ==
LOC: HO.HBS 09:30
PROVIDERS: PCP Family Medicine; Visit Provider Physician Assistant Surgical
DX: E66.9 Obesity, unspecified (principal); Z68.35 Body mass index [BMI] 35.0-35.9, adult; Z90.3 Acquired absence of stomach [part of]; Z98.84 Bariatric surgery status
CPT/HCPCS: 99024

== ENCOUNTER → 2024-01-26 09:30 | Outpatient (BNVA) | payer MEDICARE, SELFPAY | PROVIDERS: PCP Family Medicine; Visit Provider Physician Assistant Surgical | DX: E66.9 Obesity, unspecified (principal); Z68.29 Body mass index [BMI] 29.0-29.9, adult; Z90.3 Acquired absence of stomach [part of] | CPT/HCPCS: 99212 ==

== ENCOUNTER 2024-03-12 14:46 | Outpatient (AMB) | payer MEDICARE, SELFPAY ==
--- NOTE | 2024-03-12 10:13 | A.OFFVIS_ITS ---
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 Presents for 4 month post op visit. Weight today is 151.6 pounds, with a BMI of 27.7. There has been a 73.4 pound weight loss,(initial weight 225 pounds) since starting the program on 07/02/2023 reflecting a 32.6 % total body weight loss and a weight loss of 40.9 pounds since surgery (operative weight 192.5 pounds) reflecting a 21.2 % TBWL since surgery. No complaints of nausea, emesis, abdominal pain or reflux. Reports infrequent but normal bowel movements every 2 days and uses stool softeners regularly. taking celebrate MVI, and carlos + D No longer needing Norvasc. Present meal plan includes: Celebrate 4 in 1 1 scoop at 7-9 and 10-12 ZP bar 1-3 meal at 4pm 4 forks and 4 forks Celebrate rebuild 1 scoop 7-9 50-64 oz water as well? Exercise routine includes: Recumbent bike 6 x per week, 35-45 minutes per day. 345-360 calories daily 3 lb and 5 lb weights at home [facility] Medical History Arthritis Elevated cholesterol HTN (hypertension) GERD (gastroesophageal reflux disease) Gout Osteopenia Hx of cataract Hx of retinal detachment Surgical History Hx of laparoscopic partial gastrectomy Hx of hernia repair History of repair of ACL History of lateral meniscus repair of left knee History of colon resection Hx of kidney donation Family History Father Heart murmur Heart valve replaced by transplant Brother Heart valve replaced by transplant H/O heart bypass surgery Social History Household Members: Family Housing: House Are you a primary acute care occupational therapist to a significant other at home: No Do you presently have visiting nurse or other home services: No Alcohol intake: never Patient Tobacco Use Status: Former Tobacco user Years Smoked: quit 20 yrs ago Telehealth Telehealth Telehealth Platform: Telephone Location of provider rendering services: practice address Location of patient: address on file Patient Identification confirmed using: Name, : Yes Telehealth method: voice only Patient verbally consented to treatment: Yes Patient verbally consented to billing insurance company: Yes Patient informed of any privacy concerns related to visit: Yes Minutes spent on Phone/Video with Pt.: 18 Assessment & Plan Assessment & Plan (1) S/P laparoscopic sleeve gastrectomy: Code(s): Z98.84 - Bariatric surgery status Category: Surgical Plan: change meal plan slightly Celebrate 4 in 1 1 scoop at 7-9 and 0.5 scoop at 10-12 ZP bar 1-3 meal at 4pm 4 forks and 4 forks Celebrate rebuild 1 scoop 7-9 may have fresh veg and salad. Continue daily exercise. Return to clinic 2 months for six-month follow-up visit. Check labs at that time. Encouraged to text weekly and with any questions or concerns.
[2024-03-12 10:14] VITALS: BMI 27.7
== END 2024-03-12 14:58 | disposition home or self-care (01) ==
LOC: HO.HBS 14:46
PROVIDERS: PCP Family Medicine; Visit Provider Physician Assistant Surgical
DX: E66.3 Overweight (principal); Z68.27 Body mass index [BMI] 27.0-27.9, adult; Z90.3 Acquired absence of stomach [part of]; Z98.84 Bariatric surgery status
CPT/HCPCS: 99442

== ENCOUNTER → 2024-03-12 14:46 | Outpatient (BNVA) | payer MEDICARE, SELFPAY | PROVIDERS: PCP Family Medicine; Visit Provider Physician Assistant Surgical ==

== ENCOUNTER 2024-06-09 10:44 | Outpatient (AMB) | payer MEDICARE, SELFPAY ==
--- NOTE | 2024-06-09 10:45 | A.OFFVIS_ITS ---
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 Presents for 6 month post op visit. Weight today is 143 pounds, with a BMI of 26.2. There has been a 82 pound weight loss,(initial weight 225 pounds) since starting the program on 07/02/2023 reflecting a 36.4 % total body weight loss and a weight loss of 49.5 pounds since surgery (operative weight 192.5 pounds) reflecting a 25.7 % TBWL since surgery. No complaints of nausea, emesis, abd ominal pain or reflux. Reports infrequent but normal bowel movements every 2 days and uses stool softeners regularly. taking celebrate MVI, and carlos + D No longer needing Norvasc. Wants to incorporate more food. She is very satisfied with her results. She has a significant amount of energy, no pain, and generally feels great. 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 She will get me those results. Present meal plan includes: Premier protein 1 scoop at 7-9 fit crunch bar 12-2 meal at 4pm 4-5 forks protein and 4 forks veg pashto yogurt 7-9 50-64 oz water as well? Exercise routine includes: Recumbent bike 6 x per week, 35-45 minutes per day. 345-360 calories daily walking daily, swimming, kayaking 3 lb and 5 lb weights at home Any post op complications: none DIAMANTE: never DM: nevr HTN: resolved Hyperlipidemia: improved GERD:?0-5 scale ??0 = no symptoms ??1 = symptoms noticeable but not bothersome 2 =symptoms bothersome but not daily ? 3 = symptoms bothersome and daily 4 = symptoms affect daily activities 5 = symptoms are incapacitating, unable to do daily activities ? How bad is the heartburn: 0 ? Heartburn while lying down: 0 ? Heartburn when standing up: 0 ? Heartburn after meals: 0 ? Does heartburn change your diet: 0 ? Does heartburn wake you up from sleep: 0 ? Do you have difficulty swallowin ? Do you have pain with swallowin ? If you take medicine for your reflux, does this affect your daily life: 0 Satisfaction with present condition - satisfied or not satisfied: satisfied [facility] Medical History Arthritis Elevated cholesterol HTN (hypertension) GERD (gastroesophageal reflux disease) Gout Osteopenia Hx of cataract Hx of retinal detachment Surgical History Hx of laparoscopic partial gastrectomy Hx of hernia repair History of repair of ACL History of lateral meniscus repair of left knee History of colon resection Hx of kidney donation Family History Father Heart murmur Heart valve replaced by transplant Brother Heart valve replaced by transplant H/O heart bypass surgery Social History Household Members: Family Housing: House Are you a primary client care representative to a significant other at home: No Do you presently have visiting nurse or other home services: No Alcohol intake: never Patient Tobacco Use Status: Former Tobacco user Years Smoked: quit 20 yrs ago Physical Exam Const General: cooperative and no acute distress Orientation/consciousness: patient oriented x3 Resp Effort & Inspection: normal respiratory effort Auscultation: clear to auscultation bilaterally Cardio Rate: regular rate Rhythm: regular rhythm GI Inspection: Yes normal to inspection and Yes incision (well healed) Palpation (GI): Soft to palpation and no masses Neuro General: patient oriented x3 Assessment & Plan Assessment & Plan (1) Overweight (BMI 25.0-29.9): Code(s): E66.3 - Overweight Category: Medical Plan: Patient wishes to incorporate more food. We will change her meal plan accordingly. Premier protein, 1 scoop Meal 6 forks protein and 6 forks vegetables x2 Samoan yogurt Continue exercises she is doing. She will get me the lab work from her primary care physician and veneer clipper helper as she may need some vitamin levels checked. Return to the office 6 weeks.
[2024-06-09 10:54] VITALS: BP 119/77; PULSE 84; TEMP 36.1; O2SAT 97; BMI 26.2
== END 2024-06-09 11:20 | disposition home or self-care (01) ==
PROVIDERS: PCP Family Medicine; Visit Provider Physician Assistant Surgical
DX: E66.3 Overweight (principal); Z68.26 Body mass index [BMI] 26.0-26.9, adult; Z90.3 Acquired absence of stomach [part of]; Z98.84 Bariatric surgery status
CPT/HCPCS: 99213

== ENCOUNTER → 2024-06-09 10:44 | Outpatient (BNVA) | payer MEDICARE, SELFPAY | PROVIDERS: PCP Family Medicine; Visit Provider Physician Assistant Surgical | DX: E66.3 Overweight (principal); Z71.3 Dietary counseling and surveillance; Z98.84 Bariatric surgery status | CPT/HCPCS: 99212 ==

== ENCOUNTER 2024-07-15 09:30 | Outpatient (AMB) | payer MEDICARE, SELFPAY ==
--- NOTE | 2024-07-15 09:29 | A.OFFVIS_ITS ---
VS Expanded 07/15/24 09:30 Height 5 ft 2 in Weight 136 lb 4 oz BMI 24.9 Body Fat % 31.8 Body Fat Mass 43.4 Fat Free Mass 93 Visceral Fat Rating 8 Body Water % 46.8 Body Water Mass 63.8 Muscle Mass/Score 87.4 Basal Metabolic Rate/Score 1,280 Intake Visit Reasons: tv 6 mon PO LSG 11/25/23 Cardiology Physician Required: No Allergies fuentes 2 inhibitor Adverse Reaction (Severe, Uncoded 12/02/23 11:29) acute kidney failure Medication List - Last Reconciled 07/15/24 by ABRIL Richards alendronate 70 mg PO QWEEK allopurinol 100 mg PO BID cyclosporine 0.05% (Restasis) 1 drp ophthalmic (eye) BID diphenhydramine HCl (Benadryl Allergy) 25 mg PO BEDTIME PRN docusate sodium (Colace) 100 mg PO BID 90 days simvastatin 40 mg PO DAILY HPI Comments Details: This?a?68?yo female who is s/p LSG without hiatal hernia repair on?11/25/2023. Presents for 8 month post op visit. Weight today is 136.4 pounds, with a BMI of 24.9. There has been a 88.6 pound weight loss,(initial weight 225 pounds) since starting the program on 07/02/2023 reflecting a 39.3 % total body weight loss and a weight loss of 56.1 pounds since surgery (operative weight 192.5 pounds) reflecting a 29.1 % TBWL since surgery. No complaints of nausea, emesis, abdominal pain or reflux. Reports infrequent but normal bowel movements every 2 days and uses stool softeners regularly. taking bariatric fusion MVI, and carlos + D No longer needing Norvasc. She is very satisfied with her results. She has a significant amount of energy, no pain, and generally feels great. 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 Present meal plan includes: Premier protein, 1 scoop Meal 6 forks protein and 6 forks vegetables x 2 Sinhala yogurt 7-9 50-64 oz water as well? Exercise routine includes: Recumbent bike 6 x per week, 35-45 minutes per day. 345-360 calories daily walking daily, swimming, kayaking, started yoga 3 lb and 5 lb weights at home [facility] Medical History Arthritis Elevated cholesterol HTN (hypertension) GERD (gastroesophageal reflux disease) Gout Osteopenia Hx of cataract Hx of retinal detachment Surgical History Hx of laparoscopic partial gastrectomy Hx of hernia repair History of repair of ACL History of lateral meniscus repair of left knee History of colon resection Hx of kidney donation Family History Father Heart murmur Heart valve replaced by transplant Brother Heart valve replaced by transplant H/O heart bypass surgery Social History Household Members: Family Housing: House Are you a primary day care center director to a significant other at home: No Do you presently have visiting nurse or other home services: No Alcohol intake: never Patient Tobacco Use Status: Former Tobacco user Years Smoked: quit 20 yrs ago Telehealth Telehealth Telehealth Platform: Telephone Location of provider rendering services: practice address Location of patient: address on file Patient Identification confirmed using: Name, : Yes Telehealth method: voice only Patient verbally consented to treatment: Yes Patient verbally consented to billing insurance company: Yes Patient informed of any privacy concerns related to visit: Yes Minutes spent on Phone/Video with Pt.: 20 Assessment & Plan Assessment & Plan (1) S/P laparoscopic sleeve gastrectomy: Code(s): Z98.84 - Bariatric surgery status Category: Surgical Plan: Patient is doing very well. She has achieved a healthy weight. She does state that sometimes she does skip a meal at which point she would have a fit crunch bar. I did suggest that she add an additional half scoop of Premier protein powder on the days that she skips a meal. Otherwise continue current meal plan and exercise plan. She feels very healthy and is exercising regularly. We will have her follow-up in the office as scheduled.
[2024-07-15 09:30] VITALS: BMI 24.9
== END 2024-07-15 10:01 | disposition home or self-care (01) ==
LOC: HO.HBS 09:54
PROVIDERS: PCP Family Medicine; Visit Provider Physician Assistant Surgical
DX: Z71.3 Dietary counseling and surveillance (principal); Z90.3 Acquired absence of stomach [part of]; Z98.84 Bariatric surgery status
CPT/HCPCS: 98967

== ENCOUNTER → 2024-07-15 09:30 | Outpatient (BNVA) | payer MEDICARE, SELFPAY | PROVIDERS: PCP Family Medicine; Visit Provider Physician Assistant Surgical ==

== ENCOUNTER → 2024-09-21 08:57 | Outpatient (REF) | payer MEDICARE, SELFPAY ==
--- NOTE | 2024-09-21 08:59 | CA_ITS ---
Transthoracic Echocardiogram Patient (Last, First, Middle): Vanessa Estevez, Gender: Female Date of : 1955 Age: 69 Procedure Date: 09/21/2024 Procedure Type: Transthoracic Echocardiogram Location: OP Height: 157.48 cm Weight: 63.5 kg BSA: 1.64 m2 Heart Rate: bpm BP: 118 / 80 mmHg Supervisor Ride Assembly: FARRAH Referring MD: Maurilio Acosta MD Symptoms: I77.810 - Thoracic aortic ectasia Study Quality: Adequate ECG Rhythm: Sinus Conclusions: - The left ventricular systolic function is normal. The calculated ejection fraction is 68% by biplane method. - No obvious valvular pathology seen on this study. - There is mild dilatation of the ascending aorta measuring 4.10 cm. Findings Left Ventricle Normal left ventricular cavity size. The left ventricular systolic function is normal. The calculated ejection fraction is 68% by biplane method. There is no evidence of regional wall motion abnormalities. Diastolic function is normal for age. There is mild septal asymmetric hypertrophy. Right Ventricle Normal right ventricular cavity size and systolic function. Atria Both atria are normal in size. Aortic Valve There is a normal trileaflet aortic valve. There is no aortic valve stenosis. There is no aortic valve regurgitation. Mitral Valve The mitral valve appears normal. There is no mitral valve regurgitation. There is no mitral valve stenosis. Pulmonic Valve The pulmonic valve is likely normal. Tricuspid Valve There is trace tricuspid valve regurgitation. There is no evidence of pulmonary hypertension. Great Vessels There is mild dilatation of the ascending aorta measuring 4.10 cm. Venous The inferior vena cava is normal in size and collapses greater than 50% with inspiration. Pericardium/Pleural There is no evidence of pericardial effusion. Prior Study Comparison No significant change compared to prior study dated: 10/02/2023. Recommendations, Care & Conclusions No obvious valvular pathology seen on this study. Measurements 2D Linear Measurements IVSd: 1.12 0.6-0.9/0.6-1.0 cm LVIDd: 3.85 3.9-5.3/4.2-5.9 cm LVIDd Index: 2.35 2.4-3.2/2.2-3.1 cm/m2 LVIDs: 2.50 2.0-3.6 cm LVPWd: 1.01 0.7-1.1 cm LA Diam: 2.60 2.7-3.8/3.0-4.0 cm LAIDs Index: 1.59 1.5-2.3 cm/m2 LV Mass: 163.05 67-162/88-224 g LV Mass Index: 99.42 43-95/49-115 g/m2 LVOT Diam: 2.00 3.0+(-)1.3 cm 2D Systolic Function EF 4C: 62.60 >55% EF 2C: 72.10 >55% EF BiP: 67.80 >55% Mitral Valve MV Pk E: 0.42 MV PK A: 0.82 MV Decel Time: 259.00 E/A: 0.50 E'Lateral: 9.36 E'Medial: 7.40 E/E' Med: 5.70 E/E' Lat: 4.50 PHT: 76.00 MVA PHT: 2.89 Decel Otero: 1.62 Aortic Valve AoV Pk Addy: 0.93 AoV Mn Addy: 0.69 AoV VTI: 0.16 AoV Pk Grad: 3.00 Aov Mn Grad: 2.00 EV Cont.VTI: 2.62 LVOT LVOT Pk Addy: 0.71 LVOT Mn Addy: 0.60 LVOT VTI: 0.13 LVOT Pk Grad: 2.00 LVOT Mn Grad: 2.00 LVOT Diam: 2.00 LVOT Area: 3.14 Diastolic Function MV Pk E: 0.42 MV Pk A: 0.82 E/A: 0.50 E'Medial: 7.40 E/E' Med: 5.70 E' Laterial: 9.36 E/E' Lat: 4.50 Right Ventricle TAPSE (mm): 25.60 TVS' Addy: 9.79 Tricuspid Valve TR Pk Addy: 2.01 TR Pk Grad: 16.00 RA Press: 3.00 RVSP: 19.00 Great Vessels Aorta Sinus of Valsalva: 3.86 2.0-3.[address] [place]: 2.89 1.7-3.4 cm Ao Asc: 4.10 2.1-3.4 cm Updated in Other Vendor System with Status of Final Maurilio Acosta MD electronically signed on 09/23/2024 12:48:19 PM with status of Final
== END ==
LOC: HO.CARD 08:57
PROVIDERS: PCP Family Medicine; Visit Provider Internal Medicine
DX: I77.810 Thoracic aortic ectasia (principal)
CPT/HCPCS: 93306

== ENCOUNTER → 2024-09-21 08:59 | Outpatient (BNV) | payer MEDICARE, SELFPAY | PROVIDERS: PCP Family Medicine; Visit Provider Internal Medicine | DX: I42.2 Other hypertrophic cardiomyopathy (principal) | CPT/HCPCS: 93306 ==

== ENCOUNTER 2024-09-28 10:30 | Outpatient (AMB) | payer MEDICARE, SELFPAY ==
[2024-09-28 10:48] VITALS: BP 104/76; PULSE 76; BMI 26.0
--- NOTE | 2024-09-28 10:48 | A.OFFVIS_ITS ---
Vital Signs 09/28/24 10:48 Height 5 ft 2 in Weight 141 lb 15.643 oz BMI 26.0 BP 104/76 Blood Pressure Location Lt brachial Position Sitting Pulse 76 Intake Visit Reasons: 1 year follow up w/ echo Physical Scientist Required: No Accompanied by: Self / Same As Patient Allergies fuentes 2 inhibitor Adverse Reaction (Severe, Uncoded 12/02/23 11:29) acute kidney failure Medication List - Last Reconciled 09/28/24 by Maurilio Acosta MD alendronate 70 mg PO QWEEK allopurinol 100 mg PO BID cyclosporine 0.05% (Restasis) 1 drp ophthalmic (eye) BID diphenhydramine HCl (Benadryl Allergy) 25 mg PO BEDTIME PRN docusate sodium (Colace) 100 mg PO BID 90 days simvastatin 40 mg PO DAILY HPI Comments Details: Vanessa returns for follow-up. In the past, she was seen regarding preoperative stratification for bariatric surgery. She underwent workup including echocardiogram and stress test and she had the surgery with no issues. She has lost almost 80+ lb in weight. She is no longer on amlodipine. Otherwise, she does not have any cardiac symptoms. She had a follow-up echocardiogram because of mild ascending aortic dilatation. [facility] Medical History Arthritis Elevated cholesterol HTN (hypertension) GERD (gastroesophageal reflux disease) Gout Osteopenia Hx of cataract Hx of retinal detachment Surgical History Hx of laparoscopic partial gastrectomy Hx of hernia repair History of repair of ACL History of lateral meniscus repair of left knee History of colon resection Hx of kidney donation Family History Father Heart murmur Heart valve replaced by transplant Brother Heart valve replaced by transplant H/O heart bypass surgery Social History Household Members: Family Housing: House Are you a primary ostomy care nurse to a significant other at home: No Do you presently have visiting nurse or other home services: No Alcohol intake: never Patient Tobacco Use Status: Former Tobacco user Years Smoked: quit 20 yrs ago Review of Systems Const Denies chills, Denies fatigue, Denies fever(s), Denies weight gain and Denies weight loss ENT Denies dizziness Card Denies chest pain, Denies leg edema, Denies lightheadedness, Denies palpitations, Denies dyspnea on exertion, Denies orthopnea and Denies other Resp Denies cough and Denies dyspnea on exertion GI Denies hematochezia and Denies change in stool character Musc Denies abnormal gait, Denies muscle weakness, Denies numbness, Denies radiating pain into limb and Denies tingling Neuro Denies abnormal gait, Denies dizziness, Denies numbness and Denies tingling Endo Denies fatigue and Denies palpitations Physical Exam Vital Signs: Last Vital Signs Pulse 76 09/28/24 10:48 BP 104/76 09/28/24 10:48 BMI result Body Mass Index 26.0 Const General: comfortable and no acute distress Orientation/consciousness: patient oriented x3 HEENT Other: Unremarkable Head: Yes normal to inspection Neck Neck: Yes normal visual inspection Chest Chest palpation & inspection: normal inspection of the chest Resp Auscultation: clear to auscultation bilaterally Cardio Palpation: normal PMI Heart sounds: S1 normal heart sound present, S2 normal heart sound present, no gallops, no murmurs and no rubs GI Palpation (GI): Soft to palpation Back/Spine/Pelvis Other: unremarkable Skin General skin exam: no rashes or lesions noted Neuro General: patient oriented x3 Extrem General: Yes normal to inspection Psych Mental Status: mental status grossly normal Office Procedures EKG Details: EKG with underlying sinus rhythm at 76/Min; no significant ST-T changes and otherwise unremarkable[place] [id number], Complete Assessment & Plan Assessment & Plan (1) Ascending aorta dilatation: Code(s): I77.810 - Thoracic aortic ectasia Category: Medical Plan In the recent echocardiogram, preserved LVEF. No significant valvular findings. Ascending aortic size 4.1 cm. In the echocardiogram from last year, ascending aortic size 4 cm. Overall, stable without much any major change. Discussed about this with patient. Avoid any strenuous physical activity but otherwise can maintain normal lifestyle. We will recheck in 2 years. Coding Level of Care Code Est Pt Level 3 (95804) Diagnoses Ascending aorta dilatation I77.810 CPT Codes EKG - CPT: 71000-[id number], Complete ([id number])
== END 2024-09-28 11:18 | disposition home or self-care (01) ==
PROVIDERS: PCP Family Medicine; Visit Provider Internal Medicine
DX: I77.810 Thoracic aortic ectasia (principal)
CPT/HCPCS: 93010; 99213

== ENCOUNTER → 2024-09-28 10:30 | Outpatient (BNVA) | payer MEDICARE, SELFPAY | PROVIDERS: PCP Family Medicine; Visit Provider Internal Medicine | DX: I77.810 Thoracic aortic ectasia (principal); Z87.891 Personal history of nicotine dependence | CPT/HCPCS: 93005; 99212 ==

== ENCOUNTER 2025-01-11 07:58 | Outpatient (AMB) | payer MEDICARE, SELFPAY ==
--- NOTE | 2025-01-11 08:00 | MHC.OFFVISWM ---
VS Expanded 01/11/25 08:08 BP 114/71 Blood Pressure Location Rt brachial Blood Pressure Position Sitting Pulse 85 Pulse Source Pulse Oximeter Temp 97.3 F Temperature Source Temporal Artery Scan Pulse Oximetry 98 Oxygen Delivery Method Room Air Height 5 ft 2 in Weight 139 lb BMI 25.4 Body Fat % 28.3 Body Fat Mass 39.2 Fat Free Mass 99.6 Visceral Fat Rating 8.0 Body Water % 50.5 Body Water Mass 70.2 Muscle Mass/Score 94.6 Basal Metabolic Rate/Score 1,321 Intake Visit Reasons: OV PO LSG 11/25/23 Allergies fuentes 2 inhibitor Adverse Reaction (Severe, Uncoded 12/02/23 11:29) acute kidney failure HPI Comments Details: This?a?69?yo female who is s/p LSG without hiatal hernia repair on?11/25/2023. Presents for 1 year 1.5 month post op visit. Weight today is 139 pounds, with a BMI of 25.4. There has been a 86 pound weight loss,(initial weight 225 pounds) since starting the program on 07/02/2023 reflecting a 38.2 % total body weight loss and a weight loss of 53.5 pounds since surgery (operative weight 192.5 pounds) reflecting a 27.7 % TBWL since surgery. No complaints of nausea, emesis, abdominal pain or reflux. Reports infrequent but normal bowel movements every 2 days and uses stool softeners regularly. taking bariatric fusion MVI, and carlos + D No longer needing Norvasc. She is very satisfied with her results. She has a significant amount of energy, no pain, and generally feels great. Additionally, she states that she is satisfied with the meal plan. Present meal plan includes: Premier protein, 1 scoop Meal 6 forks protein and 6 forks vegetables x 2 Iraqi yogurt 7-9 50-64 oz water as well? Exercise routine includes: Recumbent bike 6 x per week, 35-45 minutes per day. 345-360 calories daily swimming 2 days per week, 30 min walking daily, swimming, kayaking, started yoga 3 lb and 5 lb weights at home Any post op complications: none DIAMANTE: never DM: never HTN: resolved Hyperlipidemia: improved GERD:?0-5 scale ??0 = no symptoms ??1 = symptoms noticeable but not bothersome 2 =symptoms bothersome but not daily ? 3 = symptoms bothersome and daily 4 = symptoms affect daily activities 5 = symptoms are incapacitating, unable to do daily activities ? How bad is the heartburn: 0 ? Heartburn while lying down: 0 ? Heartburn when standing up: 0 ? Heartburn after meals: 0 ? Does heartburn change your diet: 0 ? Does heartburn wake you up from sleep: 0 ? Do you have difficulty swallowin ? Do you have pain with swallowin ? If you take medicine for your reflux, does this affect your daily life: 0 Satisfaction with present condition - satisfied or not satisfied: Satisfied [facility] Medical History Arthritis Elevated cholesterol HTN (hypertension) GERD (gastroesophageal reflux disease) Gout Osteopenia Hx of cataract Hx of retinal detachment Surgical History Hx of laparoscopic partial gastrectomy Hx of hernia repair History of repair of ACL History of lateral meniscus repair of left knee History of colon resection Hx of kidney donation Family History Father Heart murmur Heart valve replaced by transplant Brother Heart valve replaced by transplant H/O heart bypass surgery Social History Household Members: Family Housing: House Are you a primary senior care assistant to a significant other at home: No Do you presently have visiting nurse or other home services: No Alcohol intake: never Patient Tobacco Use Status: Former Tobacco user Years Smoked: quit 20 yrs ago Physical Exam Const General: cooperative and no acute distress Orientation/consciousness: patient oriented x3 Resp Effort & Inspection: normal respiratory effort Auscultation: clear to auscultation bilaterally Cardio Rate: regular rate Rhythm: regular rhythm GI Inspection: Yes normal to inspection and Yes incision (well healed) Palpation (GI): Soft to palpation and no masses Neuro General: patient oriented x3 Assessment & Plan Assessment & Plan (1) S/P laparoscopic sleeve gastrectomy: Code(s): Z98.84 - Bariatric surgery status Category: Surgical Plan: Patient is doing very well of all. She has no significant complaints at today's visit. She has good energy. She is satisfied with her meal plan. She has good exercise tolerance. We will check 1 year postop labs. She continues on both a bariatric multivitamin and calcium plus D. Encouraged to continue to text her weight is and with any questions or concerns. Orders: Orders Insulin Today E78.00 - Pure hypercholesterolemia, unspecified, I10 - Essential (primary) hypertension, K76.0 - Fatty (change of) liver, not elsewhere classified, Z98.84 - Bariatric surgery status Hemoglobin A1c Today E78.00 - Pure hypercholesterolemia, unspecified, I10 - Essential (primary) hypertension, K76.0 - Fatty (change of) liver, not elsewhere classified, Z98.84 - Bariatric surgery status IRON PROFILE Today E78.00 - Pure hypercholesterolemia, unspecified, I10 - Essential (primary) hypertension, K76.0 - Fatty (change of) liver, not elsewhere classified, Z98.84 - Bariatric surgery status C Reactive Protein Today E78.00 - Pure hypercholesterolemia, unspecified, I10 - Essential (primary) hypertension, K76.0 - Fatty (change of) liver, not elsewhere classified, Z98.84 - Bariatric surgery status TSH reflex Free T4 Today E78.00 - Pure hypercholesterolemia, unspecified, I10 - Essential (primary) hypertension, K76.0 - Fatty (change of) liver, not elsewhere classified, Z98.84 - Bariatric surgery status Ferritin Today E78.00 - Pure hypercholesterolemia, unspecified, I10 - Essential (primary) hypertension, K76.0 - Fatty (change of) liver, not elsewhere classified, Z98.84 - Bariatric surgery status Vitamin D 25-OH Total Today E78.00 - Pure hypercholesterolemia, unspecified, I10 - Essential (primary) hypertension, K76.0 - Fatty (change of) liver, not elsewhere classified, Z98.84 - Bariatric surgery status Complete Blood Count Auto Diff Today E78.00 - Pure hypercholesterolemia, unspecified, I10 - Essential (primary) hypertension, K76.0 - Fatty (change of) liver, not elsewhere classified, Z98.84 - Bariatric surgery status Lipid Panel Today E78.00 - Pure hypercholesterolemia, unspecified, I10 - Essential (primary) hypertension, K76.0 - Fatty (change of) liver, not elsewhere classified, Z98.84 - Bariatric surgery status Comprehensive Met. Panel Today E78.00 - Pure hypercholesterolemia, unspecified, I10 - Essential (primary) hypertension, K76.0 - Fatty (change of) liver, not elsewhere classified, Z98.84 - Bariatric surgery status Vitamin B12 and Folate Today E78.00 - Pure hypercholesterolemia, unspecified, I10 - Essential (primary) hypertension, K76.0 - Fatty (change of) liver, not elsewhere classified, Z98.84 - Bariatric surgery status Zinc Today E78.00 - Pure hypercholesterolemia, unspecified, I10 - Essential (primary) hypertension, K76.0 - Fatty (change of) liver, not elsewhere classified, Z98.84 - Bariatric surgery status Vitamin B1 Today E78.00 - Pure hypercholesterolemia, unspecified, I10 - Essential (primary) hypertension, K76.0 - Fatty (change of) liver, not elsewhere classified, Z98.84 - Bariatric surgery status Vitamin A Today E78.00 - Pure hypercholesterolemia, unspecified, I10 - Essential (primary) hypertension, K76.0 - Fatty (change of) liver, not elsewhere classified, Z98.84 - Bariatric surgery status
[2025-01-11 08:08] VITALS: BP 114/71; PULSE 85; TEMP 36.3; O2SAT 98; BMI 25.4
== END 2025-01-11 08:35 | disposition home or self-care (01) ==
LOC: HO.HBS 07:58
PROVIDERS: PCP Family Medicine; Visit Provider Physician Assistant Surgical
DX: Z71.3 Dietary counseling and surveillance (principal); Z90.3 Acquired absence of stomach [part of]; Z98.84 Bariatric surgery status
CPT/HCPCS: 99213; G2211

== ENCOUNTER 2025-01-11 07:58 | Outpatient (REF) | payer MEDICARE, SELFPAY ==
[2025-01-11 09:04] LABS: MANUAL DIFF FLAG NO
[2025-01-11 09:36] LABS: Basophils Absolute Auto 0.1 X10*3/uL (0.0-0.2); Basophils Percent Auto 1.3 % (0-2); Eosinophils Percent Auto 0.7 % (0-4); Estimated Average Glucose 94 mg/dL; Hematocrit 40.7 % (37.0-47.0); Hemoglobin 14.3 g/dl (12.0-16.0); Hemoglobin A1c % 4.9 % (<6.0); Imm Gran Abs Auto 0.01 X10*3/uL (0.00-0.03); Imm Gran Pct Auto 0.2 % (0.0-0.4); Lymphocytes Absolute Auto 1.4 X10*3/uL (1.2-4.9); Lymphocytes Percent Auto 25.9 % (20-40); Mean Corpuscular HGB Conc 35.1 g/dl (31.0-35.0); Mean Corpuscular Hemoglobin 36.5 pg (27.0-33.0); Mean Corpuscular Volume 103.8 fL (80.0-98.0); Mean Platelet Volume 10.1 fL (9.4-12.3); Monocytes Absolute Auto 0.5 X10*3/uL (0.1-1.2); Monocytes Percent Auto 8.9 % (2-11); Neutrophils Absolute Auto 3.5 x10*3/uL (2.0-8.3); Platelet Count 201 X10*3/uL (160-400); Red Blood Count 3.92 X10*6/uL (4.20-5.50); Red Cell Distribution Width 12.9 % (11.0-16.0); Total Hemoglobin (HGBA1C) 3749.9536 umol/L; White Blood Count 5.5 X10*3/uL (4.8-10.8)
[2025-01-11 10:09] LABS: Alanine Aminotransferase 16 U/L (0-31); Alkaline Phosphatase 69 U/L (39-117); Anion Gap 11 (12-20); Aspartate Amino Transferase 25 U/L (5-31); Bilirubin Total 0.5 mg/dL (0.0-1.0); Blood Urea Nitrogen 33 mg/dL (9-16); C Reactive Protein < 0.10 mg/dL (< or = 0.50); Calcium 9.1 mg/dL (8.4-10.2); Carbon Dioxide 28 mmol/L (22-29); Chloride 108 mmol/L (96-108); Cholesterol 199 mg/dL (<200); Estimated Glomerular Filt Rate > 60; Glucose Random 88 mg/dL (60-115); HDL Cholesterol 64 mg/dL (>40); Iron 127 mcg/dL (30-160); LDL Cholesterol Calculated 111 mg/dL (<100); Percent Iron Saturation 54 % (15-50); Potassium 4.1 mmol/L (3.3-5.1); Sodium 143 mmol/L (135-145); Total Iron Binding Capacity 235 mcg/dL (228-428); Total Protein 7.2 g/dL (6.5-8.0); Triglycerides 124 mg/dL (<150); Unsaturated Iron Binding 108 ug/dL
[2025-01-11 10:19] LABS: Ferritin 231 ng/mL (10-250); TSH reflex Free T4 2.04 uIU/mL (0.32-4.0); Vitamin D 25-OH Total 70.3 ng/mL (>30)
[2025-01-11 10:39] LABS: Folate 14.2 ng/mL (> or = 4.0); Vitamin B12 > 2000 pg/mL (200-900)
[2025-01-11 10:41] LABS: Insulin 7 uU/mL (2-29)
[2025-01-13 23:23] LABS: Zinc 62 mcg/dL (60-130)
[2025-01-14 12:57] LABS: Vitamin A 75 mcg/dL (38-98)
[2025-01-19 15:44] LABS: Vitamin B1 25 nmol/L (8-30)
== END 2025-01-11 07:59 | disposition home or self-care (01) ==
LOC: HO.LAB 07:58
PROVIDERS: PCP Family Medicine; Visit Provider Physician Assistant Surgical
DX: Z98.84 Bariatric surgery status (principal); K76.0 Fatty (change of) liver, not elsewhere classified; I10 Essential (primary) hypertension; E78.00 Pure hypercholesterolemia, unspecified; Z13.1 Encounter for screening for diabetes mellitus
CPT/HCPCS: 36415; 80053; 80061; 82306; 82607; 82728; 82746; 83036; 83525; 83540; 84425; 84443; 84590; 84630; 85025; 86140; 99212

== ENCOUNTER 2025-05-11 08:30 | Outpatient (AMB) | payer MEDICARE, SELFPAY ==
[2025-05-11 08:12] VITALS: BMI 25.1
--- NOTE | 2025-05-11 08:12 | MHC.OFFVISWM ---
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 Instructions: as needed cyclosporine 0.05% (Restasis) 1 drp ophthalmic (eye) BID diphenhydramine HCl (Benadryl Allergy) 25 mg PO BEDTIME PRN docusate sodium (Colace) 100 mg PO BID 90 days simvastatin 40 mg PO DAILY Held on 11/26/23. Instructions: Discuss with Dr Virgen HPI Comments Details: This?a?69?yo female who is s/p LSG without hiatal hernia repair on?11/25/2023. Presents for 1 year 6 month post op visit. Weight today is 137.7 pounds, with a BMI of 25.1. There has been a 87.3 pound weight loss,(initial weight 225 pounds) since starting the program on 07/02/2023 reflecting a 38.8 % total body weight loss and a weight loss of 54.8 pounds since surgery (operative weight 192.5 pounds) reflecting a 28.4 % TBWL since surgery. No complaints of nausea, emesis, abdominal pain or reflux. Reports infrequent but normal bowel movements every 2 days and uses stool softeners regularly. taking bariatric fusion MVI, and carlos without vitamin D as recommended by endocrinology due to concern of having only one kidney and risk of nephrolithiasis. States she has PCP appointment next week and will get labs done there. She is very satisfied with her results. She has a significant amount of energy, no pain, and generally feels great. Additionally, she states that she is satisfied with the meal plan. She offers no complaints at today's visit. Present meal plan includes: Premier protein, 1 scoop Meal 6 forks protein and 6 forks vegetables x 2 [place] yogurt 7-9 50-64 oz water as well? Exercise routine includes: Recumbent bike 6 x per week, 35-45 minutes per day. 345-360 calories daily swimming 2 days per week, 30 min walking daily, swimming, kayaking, started yoga 3 lb and 5 lb weights at home Any post op complications: none DIAMANTE: never DM: never HTN: resolved Hyperlipidemia: improved GERD:?0-5 scale ??0 = no symptoms ??1 = symptoms noticeable but not bothersome 2 =symptoms bothersome but not daily ? 3 = symptoms bothersome and daily 4 = symptoms affect daily activities 5 = symptoms are incapacitating, unable to do daily activities ? How bad is the heartburn: 0 ? Heartburn while lying down: 0 ? Heartburn when standing up: 0 ? Heartburn after meals: 0 ? Does heartburn change your diet: 0 ? Does heartburn wake you up from sleep: 0 ? Do you have difficulty swallowin ? Do you have pain with swallowin ? If you take medicine for your reflux, does this affect your daily life: 0 Satisfaction with present condition - satisfied or not satisfied: Satisfied [facility] Medical History Arthritis Elevated cholesterol HTN (hypertension) GERD (gastroesophageal reflux disease) Gout Osteopenia Hx of cataract Hx of retinal detachment Surgical History Hx of laparoscopic partial gastrectomy Hx of hernia repair History of repair of ACL History of lateral meniscus repair of left knee History of colon resection Hx of kidney donation Family History Father Heart murmur Heart valve replaced by transplant Brother Heart valve replaced by transplant H/O heart bypass surgery Social History Household Members: Family Housing: House Are you a primary housekeeper caregiver to a significant other at home: No Do you presently have visiting nurse or other home services: No Alcohol intake: never Patient Tobacco Use Status: Former Tobacco user Years Smoked: quit 20 yrs ago Telehealth Telehealth Telehealth Platform: Telephone Location of provider rendering services: practice address Location of patient: address on file Patient Identification confirmed using: Name, : Yes Telehealth method: voice only Patient verbally consented to treatment: Yes Patient verbally consented to billing insurance company: Yes Patient informed of any privacy concerns related to visit: Yes Minutes spent on Phone/Video with Pt.: 15 Assessment & Plan Assessment & Plan (1) S/P laparoscopic sleeve gastrectomy: Code(s): Z98.84 - Bariatric surgery status Category: Surgical Plan: Patient is doing exceptionally well. She has achieved a healthy weight and continues to pursue a healthy lifestyle. She continues to follow the meal plan and exercises regularly and freely. She has significant energy and is very happy with her results. She states that she will follow up with her primary care physician for her regularly scheduled appointment next week and we will get labs done through her. I did advise her to get vitamin levels checked. 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 She will get her vitamin-D level checked through her primary care physician. She does continue on bariatric multivitamin. Plan to follow-up in the office for her 2 year follow-up with the understanding she will call sooner should she develop any questions or concerns.
== END 2025-05-11 08:45 | disposition home or self-care (01) ==
LOC: HO.HBS 08:38
PROVIDERS: PCP Family Medicine; Visit Provider Physician Assistant Surgical
DX: E66.3 Overweight (principal); Z68.25 Body mass index [BMI] 25.0-25.9, adult; Z90.3 Acquired absence of stomach [part of]; Z98.84 Bariatric surgery status
CPT/HCPCS: 99213; G2211